=== PATIENT | female | born 1955 | race Caucasian/White ===

== ENCOUNTER 2017-03-17 01:31 | Inpatient (IN) | payer OTHER ==
[2017-03-17] MEDS ORDERED: ACETAMINOPHEN WITH CODEINE 300MG/30MG TABLET PO ONE (02:13)
--- NOTE | 2017-03-17 02:13 | PDOC ---
History of Present Illness <David Tinajero - Last Filed: 03/17/17 04:03> - General History Source: Patient, Family Exam Limitations: No Limitations - History of Present Illness Initial Comments: 03/17/17 02:08 Patient is a 61-year-old female with history of Psoriasis, HTN, HLD, DM, orthoscopic knee surgery brought in by daughters complaining off and leg pain since 1.5 hours. States that patient was walking down 4 steps tripped and fell hitting the left knee. There was not head strike. No LOC. States pain is 8/10 worse with movement. Deneis nausea, vomiting, dizziness, sob, chest pain. PMD: in the [place] PMHX: as above PSocHx: lives at home in a 4th floor walk up with and child, no cig, no etoh, no drugs. ALL: NKDA GENERAL/CONSTITUTIONAL: [No fever or chills. No weakness. No weight change.] HEAD, EYES, EARS, NOSE AND THROAT: [No change in vision. No ear pain or discharge. No sore throat.] CARDIOVASCULAR: [No chest pain or shortness of breath.] RESPIRATORY: [No cough, wheezing, or hemoptysis.] GASTROINTESTINAL: [No nausea, vomiting, diarrhea or constipation. No rectal bleeding.] GENITOURINARY: [No dysuria, frequency, or change in urination.] MUSCULOSKELETAL: (+) joint or muscle swelling or pain. (-) neck or back pain.] SKIN AND BREASTS: (+) rash generalized or easy bruising.] NEUROLOGIC: [No headache, vertigo, loss of consciousness, or loss of sensation.] PSYCHIATRIC: [No depression or anxiety.] ENDOCRINE: [No increased thirst. No abnormal weight change.] HEMATOLOGIC/LYMPHATIC: [No anemia, easy bleeding, or history of blood clots.] ALLERGIC/IMMUNOLOGIC: [No hives or skin allergy. No latex allergy.] GENERAL: [The patient is awake, alert, and fully oriented, in no acute distress. ] HEAD: [Normal with no signs of trauma.] EYES: [Pupils equal, round and reactive to light, extraocular movements intact, sclera anicteric, conjunctiva clear.] ENT: [Ears normal, nares patent, oropharynx clear without exudates. Moist mucous membranes.] NECK: [Normal range of motion, supple without lymphadenopathy, JVD, or masses.] LUNGS: [Breath sounds equal, clear to auscultation bilaterally. No wheezes, and no crackles.] HEART: [Regular rate and rhythm, normal S1 and S2 without murmur, rub.] ABDOMEN: [Soft, nontender, normoactive bowel sounds. No guarding, no rebound. No masses.] EXTREMITIES: Limited range of motion, (+) edema lower ext, (+) deformity and tenderness at the knee, moderate amount of swelling and tenderness distal to the knee over the anterior surface of the costello. Pulses are intact No clubbing or cyanosis. NEUROLOGICAL: [Cranial nerves II through XII grossly intact. Normal speech, normal gait.] PSYCH: [Normal mood, normal affect.] SKIN: [Warm, Dry, normal turgor, (+) rashes over the ext b/l, (-) lesions noted. ] <Lev Toscano - Last Filed: 03/17/17 08:31> - General Stated Complaint: FALL Time Seen by Provider: 03/17/17 01:51 Past History <David Tinajero - Last Filed: 03/17/17 04:03> <Lev Toscano - Last Filed: 03/17/17 08:31> - Past Medical History Allergies/Adverse Reactions: Allergies Allergy/AdvReac Type Severity Reaction Status Date / Time No Known Allergies Allergy Verified 03/17/17 02:10 *Physical Exam - Vital Signs Last Vital Signs Temp Pulse Resp BP Pulse Ox 98.3 F 85 18 160/75 95 03/17/17 02:05 03/17/17 02:05 03/17/17 02:05 03/17/17 02:05 03/17/17 02:05 <David Tinajero - Last Filed: 03/17/17 04:03> ED Treatment Course - Medications Given in the ED: ED Medications Discontinued Medications Generic Name Dose Route Start Last Admin Trade Name Freq PRN Reason Stop Dose Admin Acetaminophen/Codeine Phosphate 1 tab 03/17/17 02:13 03/17/17 03:15 Tylenol # 3 - PO 03/17/17 02:14 1 tab ONCE ONE Administration <David Tinajero - Last Filed: 03/17/17 04:03> - LABORATORY CBC & Chemistry Diagram: 03/17/17 04:34 03/17/17 04:34 <Lev Toscano - Last Filed: 03/17/17 08:31> Medical Decision Making - Medical Decision Making 03/17/17 04:03 EXAM: CT LEFT LOWER EXTREMITY without contrast FINDINGS: There is a markedly comminuted fracture of the proximal tibia involving the central aspect of the medial and lateral tibial plateaus with 3 mm of depression of the lateral plateau. Comminuted fibular head fracture is also noted with extension to the tibial fibular joint. The patella and distal femur are intact. There is a moderate-sized hemarthrosis without discrete intra-articular bodies. There is surrounding soft tissue edema. IMPRESSION: Comminuted proximal tibial fracture with mild lateral tibial plateau depression. Fibular head fracture with extension to the proximal tibiofibular joint. Read by: Dr. Sunny Perez <David Tinajero - Last Filed: 03/17/17 04:03> - Medical Decision Making 03/17/17 02:13 Patient is a 61-year-old female with history of HTN, HLD, DM, brought in by daughters complaining off and leg pain since an 1.5 hours ago with pain, swelling and deformity on exam consitent with fracture. xray Noted to have a comminuted proxmial tib/fib and tibial plateau fx will get ct of knee and labs 03/17/17 05:15 Laboratory Tests 03/17/17 03/17/17 03/17/17 04:34 04:34 04:34 WBC 15.2 H Hgb 12.1 Hct 35.4 Plt Count 248 PT with INR 11.90 H INR 1.05 PTT (Actin FS) 27.5 Sodium 135 L Potassium 4.1 Chloride 98 Carbon Dioxide 28 Anion Gap 9 BUN 18 Creatinine 0.7 Random Glucose 339 H* will call the hospitalist for admission 03/17/17 05:22 EKG NSR rate 91, NAD, (-) ST-T wave changes 03/17/17 08:[address] Casiano/Esmer paged x 5 at 0630, 0700, 0730, 0800, 0824 messages left with the service and have no response to page. 0828 d/w Dr. Casiano and will see the patient on the floor. <Lev Toscano - Last Filed: 03/17/17 08:31> *DC/Admit/Observation/Transfer - Attestations Scribe Attestion: 03/17/17 04:05 Documentation prepared by David Tinajero, acting as medical genetics director for Vickie Pereira MD. <David Tinajero - Last Filed: 03/17/17 04:03> - Discharge Dispostion Admit: Yes <Lev Toscano - Last Filed: 03/17/17 08:31> Diagnosis at time of Disposition: Hyperglycemia Tibial plateau fracture, left Qualifiers: Encounter type: initial encounter Fracture type: closed Qualified Code(s): S82.142A - Displaced bicondylar fracture of left tibia, initial encounter for closed fracture Tibia/fibula fracture Qualifiers: Encounter type: initial encounter Fracture type: closed Laterality: left Qualified Code(s): S82.202A - Unspecified fracture of shaft of left tibia, initial encounter for closed fracture - Discharge Dispostion Condition at time of disposition: Stable
[2017-03-17] MEDS ORDERED: ACETAMINOPHEN WITH CODEINE 300MG/30MG TABLET ONE (02:42)
[2017-03-17 04:41] LABS: BASOPHIL 0.4 % (0-2.0); EOSINOPHIL 0.3 % (0-4.5); MCH 30.2 pg (25.7-33.7); MCHC 34.2 g/dl (32.0-36.0); MEAN CELL VOLUME 88.3 fl (80-96); MEAN PLT VOLUME 9.2 fl (7.5-11.1); NEUTROPHILS 89.5 % (42.8-82.8); PLATELET COUNT 248 K/MM3 (134-434); RDW 12.7 % (11.6-15.6); WHITE BLOOD COUNT 15.2 K/mm3 (4.0-10.0)
[2017-03-17 04:54] LABS: INR 1.05 (0.82-1.09); PROTHROMBIN TIME (PATIENT) 11.9 SEC (9.98-11.88)
[2017-03-17 04:56] LABS: ACTIVATED PTT 27.5 SECONDS (26.9-34.4)
[2017-03-17 05:03] LABS: ALBUMIN 3.8 g/dl (3.4-5.0); ANION GAP 9 (8-16); BILIRUBIN,TOTAL 0.3 mg/dL (0.2-1.0); CALCIUM 8.8 mg/dL (8.5-10.1); CO2 28 mmol/L (21-32); CREATININE 0.7 mg/dL (0.55-1.02); SGOT/AST 18 U/L (15-37); SGPT/ALT 35 U/L (12-78); TOT PROT 6.5 g/dl (6.4-8.2)
[2017-03-17 05:04] LABS: ALK PHOS 95 U/L (45-117)
[2017-03-17 05:10] LABS: GLUCOSE,RANDOM 339 mg/dL (74-106)
[2017-03-17] MEDS ORDERED: SODIUM CHLORIDE 0.9% 1000 ML INFUS.BAG IV ONE (05:13)
--- NOTE | 2017-03-17 06:22 | PN ---
Teaching Attending Note Name of Resident: Antonio Gunter ATTENDING PHYSICIAN STATEMENT I saw and evaluated the patient. Chart, data, imaging reviewed. I reviewed the resident's note and discussed the case with the resident. I agree with the resident's findings and plan as documented. SUBJECTIVE: 61-year-old female with history of Psoriasis, HTN, HLD, DM, orthoscopic knee surgery brought in s/p fall down a staircase and trauma to left knee. States that patient was walking down 4 steps tripped and fell hitting the left knee. Pt denied any loss of sensation in lower extremities. OBJECTIVE: Last Vital Signs Temp Pulse Resp BP Pulse Ox 98.3 F 85 18 160/75 95 03/17/17 02:05 03/17/17 02:05 03/17/17 02:05 03/17/17 02:05 03/17/17 02:05 general aaox3 heent- nc, at cv -s1+s2+ rrr, systolic murmur chest- b/l air entry sounds ext - proximal left leg edema and some mild tenderness Neuro -exam intact in lower ext b/l. No loss in sensation. Motor intact. Abnormal Lab Results 03/17/17 03/17/17 03/17/17 04:34 04:34 04:34 WBC 15.2 H Neutrophils % 89.5 H Lymphocytes % 5.7 L PT with INR 11.90 H Sodium 135 L Random Glucose 339 H* CT of left lower extremity - proximal left tibial and fibula fractures EKG -NSR ASSESSMENT AND PLAN: #B/l proximal left fibular and tibial fractures in a 61yo woman s/p fall and trauma. -admit to med/surg -orthopedics consultation -left knee immobilization -pain control with tylenol prn -enoxaparin 40mg inj q24hrs for dvt ppx -DEXA scan -calcium and vitamin D #Hyperglycemia -uncontrolled DM -insulin sliding scale -statin -ACEi #Systolic murmur -transthoracic echo -should call pharmacy in AM to confirm medications
[2017-03-17] MEDS ORDERED: ATORVASTATIN CA 80 MG TABLET (FP) PO ONE (06:30)
[2017-03-17] MEDS ORDERED: IBUPROFEN 100 MG/5 ML UNIT DOSE CUPS ONE (06:40)
--- NOTE | 2017-03-17 06:55 | HP ---
CHIEF COMPLAINT: Pain, swelling in L knee after mechanical fall PCP: Dr. Oneil Patient citizen of [place]-speaking, family at bedside to translate/provide collateral HISTORY OF PRESENT ILLNESS: 61 yo woman w/ pmh of psoriasis, DM2 (non-insulin dependent), HTN, HLD, who presented to ED after mechanical fall while walking down stairs of her apartment building and striking her knee. At baseline, pt ambulates well without assistance w/ no hx of mechanical falls or traumatic fx's. Today, pt was walking down the stairs of her apartment building and loss her balance, hitting her knee on the stairs. Pt denies any gross deformities, compound fx or new neurologic symptoms at the time. Pt endorses pain and swelling following strike, 8/10, worse with movement. She denies any LOC, headstrike, lightheadness or dizzines, palpitations, CP or coughing spells at the time. Pt called her daughter, who stayed with her until the ambulance came. Per daughter , pt was pale, anxious and tachycardic after fall. Pt denies any recent fever/ chills, SOB/cough, CASTILLO/lightheadness, palpitations, chest pain, dysuria, diarrhea , rashes or new neuro symptoms. Pt has no hx of fx's, but has never been evaluated for osteopenia. She no longer follows with her PCP, Dr. Oneil in the [place], due to no insurance coverage. Normal diet, colonoscopy was 6 years ago (unremarkable per family). She denies any cardiac or pulmonary conditions that would make her a poor surgical candidate. Pt w/ poor understanding of her medication regimen, unsure if she takes medication for blood glucose control. ER course was notable for: (1)CT L leg with comminuted L tibial plateau fx (2)BG 339 (3)WBC 15.2 Recent Travel: None PAST MEDICAL HISTORY: Psoriasis DM2 HLD HTN PAST SURGICAL HISTORY: L knee arthroscopy ?7 years ago for unknown reason (periarticular edema?) Social History: Smoking: No Alcohol: No Drugs: No Family History: No hx of heart dz, cancer, DM Allergies No Known Allergies Allergy (Verified 03/17/17 02:10) HOME MEDICATIONS: REVIEW OF SYSTEMS CONSTITUTIONAL: Absent: fever, chills, diaphoresis, generalized weakness, malaise HEENT: Absent: rhinorrhea, nasal congestion, throat pain CARDIOVASCULAR: Absent: chest pain, syncope, palpitations, irregular heart rate, lightheadedness , peripheral edema RESPIRATORY: Absent: cough, shortness of breath, dyspnea with exertion GASTROINTESTINAL: Absent: abdominal pain, abdominal distension, nausea, vomiting, diarrhea GENITOURINARY: Absent: dysuria, frequency, urgency, hesitancy, hematuria, flank pain, genital pain MUSCULOSKELETAL: arthralgia, joint swelling in L leg Absent: myalgia, back pain, neck pain SKIN: BL psoriatic rash in all 4 extremities Absent: itching, pallor HEMATOLOGIC/IMMUNOLOGIC: Absent: easy bleeding, easy bruising, lymphadenopathy, frequent infections ENDOCRINE: Absent: unexplained weight gain, unexplained weight loss NEUROLOGIC: Absent: headache, focal weakness or paresthesias, dizziness, unsteady gait, seizure PHYSICAL EXAMINATION Vital Signs - 24 hr 03/17/17 02:05 Temperature 98.3 F Pulse Rate 85 Respiratory 18 Rate Blood Pressure 160/75 O2 Sat by Pulse 95 Oximetry (%) GENERAL: Awake, alert, and fully oriented, in no acute distress. [place]- speaking. HEAD: Normal with no signs of trauma. EYES: Pupils equal, round and reactive to light, extraocular movements intact, sclera anicteric, conjunctiva clear. No lid lag. EARS, NOSE, THROAT: Ears normal, nares patent, oropharynx clear without exudates. Moist mucous membranes. NECK: Normal range of motion, supple without lymphadenopathy, JVD, or masses. LUNGS: Breath sounds equal, clear to auscultation bilaterally. No wheezes, and no crackles. No accessory muscle use. HEART: 3/6 systolic ejection murmur in RUSB and LUSB border with radiation to carotids BL, normal S1 and S2 without any other m/c/g/r ABDOMEN: Soft, nontender, not distended, normoactive bowel sounds, no guarding, no rebound, no masses. No hepatomegaly MUSCULOSKELETAL: Limited ROM in L knee secondary to periarticular edema. Mild tenderness to palpation at joint line. No CVA tenderness. UPPER EXTREMITIES: 2+ pulses, warm, well-perfused. No cyanosis. No clubbing. No peripheral edema. LOWER EXTREMITIES: 2+ pulses DP, PT pulses BL, warm, well-perfused. No calf tenderness. L inflatable cast on L knee. 2+ non-pitting periarticular edema around L knee. BL psoriatic rashes on anterior LEs. 3-4 cm irregularly bordered macule on R medial shank. 5/5 strength dorsi/plantarflexion BL; 5/5 strength at flexion/extension in R knee/hip. 5/5 strength flexion/extension at L hip, limited ROM at L knee. NEUROLOGICAL: Cranial nerves II-XII intact. Normal speech. Gait not evaluated. PSYCHIATRIC: Cooperative. Good eye contact. Appropriate mood and affect. SKIN: Warm, dry, normal turgor. Psoriatic rash noted on BL extensor surface of forearms, anterior surface of shanks. Laboratory Results - last 24 hr CBC, BMP 03/17/17 04:34 03/17/17 04:34 03/17/17 03/17/17 03/17/17 04:34 04:34 04:34 WBC 15.2 H RBC 4.00 Hgb 12.1 Hct 35.4 MCV 88.3 MCH 30.2 MCHC 34.2 RDW 12.7 Plt Count 248 MPV 9.2 Neutrophils % 89.5 H Lymphocytes % 5.7 L Monocytes % 4.1 Eosinophils % 0.3 Basophils % 0.4 PT with INR 11.90 H INR 1.05 PTT (Actin FS) 27.5 Sodium 135 L Potassium 4.1 Chloride 98 Carbon Dioxide 28 Anion Gap 9 BUN 18 Creatinine 0.7 Creat Clearance w eGFR > 60 Random Glucose 339 H* Calcium 8.8 Total Bilirubin 0.3 AST 18 ALT 35 Alkaline Phosphatase 95 Total Protein 6.5 Albumin 3.8 CXR 03/17 - Pending EKG 03/17 - NSR. Rate in 90s. NAD. Small Q waves in II. TWI in V3-V4. No ST changes. No QTc prolongation CT L leg (my read) 03/17- L comminuted Tibial plateau fx and proximal fibula. Ankle/knee XR 03/17 - Proximal Tibial and fibular fx ASSESSMENT/PLAN: 61 yo woman w/ pmh of psoriasis, DM2 (non-insulin dependent), HTN, HLD, who presented to ED after mechanical fall while walking down stairs of her apartment building and striking her knee. Pt found to have proximal comminuted tibial fracture and fibular fx, in addition to elevated BG (339) and leukocytosis (15.2). #Proximal L tibial and fibular fracture - confirmed on imaging - Orthopedics consult - Left knee immobilization in inflatable cast. - Serial LE neuro checks. - Tylenol 650 PO q4h prn - DEXA scan as outpt - Calcium/vitamin D levels - NPO #DM2/hyperglycemia - BGM Q4h - Insulin SS - F/u Hgb A1c - F/u with pharmacy for med rec - Referral for PCP #HTN - 160/75 on admission - Start on ACEi for BP control #HLD - atorvastatin 80mg PO #Systolic murmur - 3/6 systolic ejection murmur, radiating to carotids - Echo #PPX Heparin SubQ 5000u FEN: Fluids: PO intake Eletrolytes: Daily BMPs Nutrition: NPO currently. Diabetic diet if surgery not today Dispo: Admit to med-surg Plan discussed with attending, Dr. Kody Gunter, PGY1 Problem List - Problem (1) Hyperglycemia Code(s): R73.9 - HYPERGLYCEMIA, UNSPECIFIED (2) Tibia/fibula fracture Code(s): S82.209A - UNSP FRACTURE OF SHAFT OF UNSP TIBIA, INIT FOR CLOS FX; S82.409A - UNSP FRACTURE OF SHAFT OF UNSP FIBULA, INIT FOR CLOS FX Qualifiers: Encounter type: initial encounter Fracture type: closed Laterality: left Qualified Code(s): S82.202A - Unspecified fracture of shaft of left tibia, initial encounter for closed fracture; S82.402A - Unspecified fracture of shaft of left fibula, initial encounter for closed fracture; S82.402A - Unspecified fracture of shaft of left fibula, initial encounter for closed fracture Visit type - Emergency Visit Emergency Visit: Yes ED Registration Date: 03/17/17 Care time: The patient presented to the Emergency Department on the above date and was hospitalized for further evaluation of their emergent condition. - New Patient This patient is new to me today: Yes Date on this admission: 03/17/17 - Critical Care Critical Care patient: No
--- NOTE | 2017-03-17 08:46 | EKG ---
Test Reason : Blood Pressure : / mmHG Vent. Rate : 091 BPM Atrial Rate : 091 BPM P-R Int : 140 ms QRS Dur : 076 ms QT Int : 372 ms P-R-T Axes : 065 042 040 degrees QTc Int : 457 ms NORMAL SINUS RHYTHM CANNOT RULE OUT ANTERIOR INFARCT , AGE UNDETERMINED ABNORMAL ECG NO PREVIOUS ECGS AVAILABLE Confirmed by KUSHAL DANIEL MD ([id number]) on 03/17/2017 8:46:17 AM Referred By: Confirmed By:KUSHAL DANIEL MD
[2017-03-17] MEDS ORDERED: INSULIN (NOVOLOG) ASPART 100 UNITS/ML 10ML VIAL ONE (09:17)
[2017-03-17] MEDS: LISINOPRIL 10 MG TABLET (FP) PO SCH ×2 (09:18→11:14)
[2017-03-17 11:21] VITALS: BMI 23.6
[2017-03-17] MEDS: ACETAMINOPHEN 325 MG TABLET (FP) PO PRN ×3 (11:35→22:09)
[2017-03-17] MEDS: HEPARIN NA (PORCINE) 5,000 UNITS/ML 1ML VIAL SQ SCH ×3 (11:46→22:09)
[2017-03-17] MEDS: INSULIN SLIDING SCALE (NOVOLOG) 1 VIAL SQ SCH ×3 (11:46→17:51)
--- NOTE | 2017-03-17 13:04 | PN ---
Progress Note (short form) - Note Progress Note: Subjective: has mild pain in L leg below the knee. NO CP or SOB, denies any h/o CAD, arrhythmias , heart failure, or MARTINEZ. can climb 4 flights of stairs before she gets SOB , and can walk on a flat surface for 4-5 blocks with no SOB or CP Objective: Vital Signs: Last Vital Signs Temp Pulse Resp BP Pulse Ox 99.0 F 93 H 18 125/65 95 03/17/17 09:00 03/17/17 09:00 03/17/17 09:00 03/17/17 09:00 03/17/17 02:05 Laboratory Results - last 24 hr 03/17/17 03/17/17 03/17/17 04:34 04:34 04:34 WBC 15.2 H RBC 4.00 Hgb 12.1 Hct 35.4 MCV 88.3 MCH 30.2 MCHC 34.2 RDW 12.7 Plt Count 248 MPV 9.2 Neutrophils % 89.5 H Lymphocytes % 5.7 L Monocytes % 4.1 Eosinophils % 0.3 Basophils % 0.4 PT with INR 11.90 H INR 1.05 PTT (Actin FS) 27.5 Sodium 135 L Potassium 4.1 Chloride 98 Carbon Dioxide 28 Anion Gap 9 BUN 18 Creatinine 0.7 Creat Clearance w eGFR > 60 POC Glucometer Random Glucose 339 H* Calcium 8.8 Total Bilirubin 0.3 AST 18 ALT 35 Alkaline Phosphatase 95 Total Protein 6.5 Albumin 3.8 03/17/17 03/17/17 09:14 11:41 WBC RBC Hgb Hct MCV MCH MCHC RDW Plt Count MPV Neutrophils % Lymphocytes % Monocytes % Eosinophils % Basophils % PT with INR INR PTT (Actin FS) Sodium Potassium Chloride Carbon Dioxide Anion Gap BUN Creatinine Creat Clearance w eGFR POC Glucometer 316 259 Random Glucose Calcium Total Bilirubin AST ALT Alkaline Phosphatase Total Protein Albumin Physical Exam: NAD , AAOx3 . HEENT: MMM, no facial droop, EOMI, tongue and uvula at mid line , round equal pupils , reactive to light . CV: RRR, 3/6 SM at RUSB, and LLSB. also to a lesser extent at apex . No JVD Lungs : CTAB Abd: soft, NT, ND , NL BS Ext: L leg in a mobilizer. edema over all leg and thigh down to foot. also bruising noted just below the knee. DP 2+ b/l . can primary teacher her L ankle and toes. nl warmth and nl color of foot. R LE with no edema or erythema Imaging: CT LE, and LE xrays , cxray reviewed Assessment/Plan: 61 y/o lady with h/o HTN, DMII, HLP, and orthoscopic sx to L knee in past who presented with pain in L leg after a fall , she was found to have L tibia and fibula Fxs. 1- L tibia and fibula Fractures : no neuro vascular compromise of LLE . - add percocet. - cont tylenol. - no weight baring - Consult Ortho - DVT PX. - Make NPO after mid night for possible Sx . - pre-Op risk stratification: this is a non-emergent surgery. The procedure itself is an intermediate risk procedure. the patient has no h/o CAD, CHF, Arrhythmias, MARTINEZ, CP , anginal sx. her functional status is very good ( meets at least 10 METS). she has DM , but no stroke. She has a systolic murmur on exam. and /or severe valvular abnormalities need to be r/o EKG reviewed with TWI in anterior leads , but nl axis and sinus rhythm. In order to risk stratify her fro michael-surgical cardiac complications, will need to obtain ECHO. Further Recs to follow depending on results . 2- H/o DM II: takes glipizid at home - cont SSI 3- HTN: cont lisinopril 4- mild leukocytosis : likely a stress reaction . she has no sx or signs to indicate infection repeat in AM 5- DVT Px Visit type - Emergency Visit Emergency Visit: Yes ED Registration Date: 03/17/17 Care time: The patient presented to the Emergency Department on the above date and was hospitalized for further evaluation of their emergent condition. - New Patient This patient is new to me today: Yes Date on this admission: 03/17/17 - Critical Care Critical Care patient: No
[2017-03-17] MEDS: oxyCODONE HCL 5 MG TABLET PO PRN (15:41)
--- NOTE | 2017-03-17 20:10 | PN ---
Progress Note (short form) - Note Progress Note: Paged due to new onset of tense, clear fluid-filled bullae on L leg around knee. Upon evaluation pt denied any fever/chills, numbness in her leg, intractable pain. PE: Gen: NAD, awake, alert Ext: Warm, DP 2+ pulses b/l, knee immobilizer in place, slight echymosis around L knee, multiple tense bullae around L knee with largest about 6 cm long, no distal L edema, no erythema noted, no ruptured bullae present A/P --Most likely directly related to trauma and 3rd spacing of fluid due to tib/ fib fracture --No suspected infection/cellulitis --No rupturing of bullae present so no need for any topical ointments --Instructed nursing staff to keep some 4x4's gently on bullae and to continue knee immobilization --Elevate leg with pillow as tolerated --Will sign out to day team Nael Peña, DO - Internal Medicine PGY-1
[2017-03-18] MEDS: oxyCODONE HCL 5 MG TABLET PO PRN ×3 (05:03→21:54)
[2017-03-18] MEDS: ACETAMINOPHEN 325 MG TABLET (FP) PO PRN ×2 (05:03→09:20)
[2017-03-18] MEDS: HEPARIN NA (PORCINE) 5,000 UNITS/ML 1ML VIAL SQ SCH ×2 (06:18→14:03)
[2017-03-18] MEDS: INSULIN SLIDING SCALE (NOVOLOG) 1 VIAL SQ SCH ×3 (06:20→17:42)
--- NOTE | 2017-03-18 06:35 | PN ---
Physical Exam: SUBJECTIVE: Patient seen and examined by me this AM - Scattered large bulla on L shank, with no erythema/calor and no tenderness to palpation. Anterior laceration was noted. Pt states pain in L knee improved. - No other overnight events. No complaints. Denies any fever/chills, CASTILLO/dizzines , CP/palps, SOB/cough, N/V, abdominal pain, pain/numbness in hands or feet. - Has not been seen by ortho yet per pt. Will follow-up on recs. OBJECTIVE: Vital Signs Intake & Output 03/15/17 03/16/17 03/17/17 03/18/17 23:59 23:59 23:59 23:59 Intake Total 750 Balance 750 Weight 58.74 kg Period Temp Pulse Resp BP Sys/Marquez Pulse Ox Last 24 Hr 98.6 F-100.0 F 88-104 18-20 105-128/62-74 97 GENERAL: Awake, alert, and fully oriented, in no acute distress. Slovak- speaking. HEAD: Normal with no signs of trauma. EYES: Pupils equal, round and reactive to light, extraocular movements intact, sclera anicteric, conjunctiva clear. No lid lag. EARS, NOSE, THROAT: Ears normal, nares patent, oropharynx clear without exudates. Moist mucous membranes. NECK: Normal range of motion, supple without lymphadenopathy, JVD, or masses. LUNGS: Breath sounds equal, clear to auscultation bilaterally. No wheezes, and no crackles. No accessory muscle use. HEART: 3/6 systolic ejection murmur in RUSB and LUSB border with radiation to carotids BL, normal S1 and S2 without any other m/c/g/r ABDOMEN: Soft, nontender, not distended, normoactive bowel sounds, no guarding, no rebound, no masses. No hepatomegaly MUSCULOSKELETAL: Still with limited ROM in L knee secondary to periarticular edema. Improved minimal tenderness to palpation at joint line. No CVA tenderness. UPPER EXTREMITIES: 2+ pulses, warm, well-perfused. No cyanosis. No clubbing. No peripheral edema. LOWER EXTREMITIES: 2+ pulses DP, PT pulses in R foot. 1+ DP, PT in L foot, likely due to dependent edema accumulation, 2+ non-pitting in L foot now. BL warm, well-perfused. No calf tenderness. still w L inflatable cast on L knee. 2 + non-pitting periarticular edema around L knee. BL psoriatic rashes on anterior LEs. Multiple 3-6 cm bullae on anterior L costello with pressure dressing applied in cast and anterior, healed laceration on anterior costello. No significant calor, erythema or pain on palpation. 5/5 strength dorsi/plantarflexion BL; 5/5 strength at flexion/extension in R knee/hip. 5/5 strength flexion/extension at L hip, limited ROM at L knee. NEUROLOGICAL: Cranial nerves II-XII intact. Normal speech. Gait not evaluated. PSYCHIATRIC: Cooperative. Good eye contact. Appropriate mood and affect. SKIN: Warm, dry, normal turgor. Still with psoriatic rash noted on BL extensor surface of forearms, anterior surface of shanks. Laboratory Results - last 24 hr CBC, BMP 03/18/17 06:20 03/17/17 04:34 03/17/17 03/17/17 03/17/17 09:14 11:41 16:56 POC Glucometer 316 259 237 03/17/17 03/18/17 21:02 05:45 POC Glucometer 248 274 Active Medications Generic Name Dose Route Start Last Admin Trade Name Freq PRN Reason Stop Dose Admin Acetaminophen 650 mg 03/17/17 06:20 03/18/17 05:03 Tylenol - PO 650 mg Q4H PRN Administration FEVER OR PAIN Acetaminophen 325 mg 03/17/17 12:57 03/17/17 22:09 Tylenol - PO 03/20/17 12:56 325 mg Q4H PRN Administration PAIN Atorvastatin Calcium 80 mg 03/18/17 08:15 Lipitor - PO HS [facility] Heparin Sodium (Porcine) 5,000 unit 03/17/17 06:45 03/18/17 06:18 Heparin - SQ 5,000 unit TID [facility] Administration Insulin Aspart 1 vial 03/17/17 16:30 03/18/17 06:20 Novolog Vial Sliding Scale - SQ Not Given TIDAC [facility] Protocol Lisinopril 10 mg 03/17/17 08:15 03/17/17 11:14 Prinivil PO Not Given DAILY [facility] Oxycodone HCl 5 mg 03/17/17 12:57 03/18/17 05:03 Roxicodone - PO 5 mg Q4H PRN Administration PAIN ECHO 03/18 - Mild TR. Normal LV function. Mild Pulm htn, RV pressure 30-40 CXR 03/17 - Impression: Scoliosis. Large heart. Pacemaker. Clear lung bases. Constipation. No sign of free air or organomegaly. Possible left ureteral stone versus ngoc calcification by L4. EKG 03/17 - NSR. Rate in 90s. NAD. Small Q waves in II. TWI in V3-V4. No ST changes. No QTc prolongation CT L leg (my read) 03/17- L comminuted Tibial plateau fx and proximal fibula. Ankle/knee XR 03/17 - Proximal Tibial and fibular fx ASSESSMENT/PLAN: 61 yo woman w/ pmh of psoriasis, DM2 (non-insulin dependent), HTN, HLD, who presented to ED after mechanical fall while walking down stairs of her apartment building and striking her knee. Pt found to have proximal comminuted tibial fracture and fibular fx, in addition to elevated BG (339) and leukocytosis (15.2). #Proximal L tibial and fibular fracture - confirmed on imaging - Seen by ortho. Plan for possible external fixation device placement tomorrow. - NPO after midnight - Left knee immobilization in inflatable cast. - Serial LE neuro checks. - oxycodone 5mg PO q4h prn for pain - DEXA scan as outpt - Calcium/vitamin D levels - Hold heparin at midnight - Surgical risk stratification: Non-emergent surgery. Procedure is intermediate risk surgery. Pt has no CVD, CHF, arrhthymias, COPD, chest pain, MARTINEZ, orthopnea , claudications, angina. PMH of diabetes, but no hx of DVTs, PEs or CVA. Pt can walk 4 flights of stairs w/o becoming symptomatic. Independent in all ADLs. Excellent functional status (METs >10). Screening echo negative for significant valvular dz. Conclusion: She is low risk of cardiac event for this intermediate risk surgery and no further work-up is medically necessary. #DM2/hyperglycemia - BGM Q4h - Insulin SS - Hgb A1c 9.5. Will require outpt f/u - Referral for PCP - Confirm home insulin regimen #HTN - 160/75 on admission - Lisinopril 10mg PO daily #HLD - Good BP control during admission - atorvastatin 80mg PO #Systolic murmur - 3/6 systolic ejection murmur, radiating to carotids on exam - Echo - Mild TR. Normal LV function. Mild Pulm HTN, RV pressure 30-40 #Constipation - Senna, colace #PPX Heparin SubQ 5000u FEN: Fluids: PO hydration Eletrolytes: Daily BMPs Nutrition: NPO at midnight. Dispo: Admit to med-surg for pre- and post-op management Plan discussed with attending, Dr. Betty Gunter, PGY1 Problem List - Problems (1) Hyperglycemia Code(s): R73.9 - HYPERGLYCEMIA, UNSPECIFIED (2) Tibia/fibula fracture Code(s): S82.209A - UNSP FRACTURE OF SHAFT OF UNSP TIBIA, INIT FOR CLOS FX; S82.409A - UNSP FRACTURE OF SHAFT OF UNSP FIBULA, INIT FOR CLOS FX Qualifiers: Encounter type: initial encounter Fracture type: closed Laterality: left Qualified Code(s): S82.202A - Unspecified fracture of shaft of left tibia, initial encounter for closed fracture; S82.402A - Unspecified fracture of shaft of left fibula, initial encounter for closed fracture; S82.402A - Unspecified fracture of shaft of left fibula, initial encounter for closed fracture Visit type - Emergency Visit Emergency Visit: Yes ED Registration Date: 03/17/17 Care time: The patient presented to the Emergency Department on the above date and was hospitalized for further evaluation of their emergent condition. - New Patient This patient is new to me today: No - Critical Care Critical Care patient: No
[2017-03-18 06:37] LABS: BASOPHIL 0.6 % (0-2.0); EOSINOPHIL 1.7 % (0-4.5); MCH 30.6 pg (25.7-33.7); MCHC 34.4 g/dl (32.0-36.0); MEAN CELL VOLUME 88.8 fl (80-96); NEUTROPHILS 64.6 % (42.8-82.8); PLATELET COUNT 199 K/MM3 (134-434); RDW 12.6 % (11.6-15.6); WHITE BLOOD COUNT 8.6 K/mm3 (4.0-10.0)
[2017-03-18 07:04] LABS: MAGNESIUM 1.7 mg/dL (1.8-2.4); PHOSPHOROUS 2.4 mg/dL (2.5-4.9)
[2017-03-18] MEDS ORDERED: ATORVASTATIN CA 80 MG TABLET (FP) PO SCH ×2 (08:15→22:00)
[2017-03-18] MEDS: LISINOPRIL 10 MG TABLET (FP) PO SCH (09:22)
--- NOTE | 2017-03-18 09:25 | CON.ORTH ---
Consult Reason for Consultation:: left tibia fx - Alcohol/Substance Use Hx Alcohol Use: No - Smoking History Smoking history: Never smoked Have you smoked in the past 12 months: No Home Medications - Allergies Allergies/Adverse Reactions: Allergies Allergy/AdvReac Type Severity Reaction Status Date / Time No Known Allergies Allergy Verified 03/17/17 02:10 Physical Exam for Ortho Vital Signs: Vital Signs Temperature 100.0 F H 03/18/17 05:26 Pulse Rate 104 H 03/18/17 05:26 Respiratory Rate 20 03/18/17 05:26 Blood Pressure 128/74 03/18/17 05:26 O2 Sat by Pulse Oximetry (%) 97 03/17/17 20:42 Labs: CBC, BMP 03/18/17 06:20 03/17/17 04:34 INR, PTT INR 1.05 (0.82-1.09) 03/17/17 04:34 - Lower Extremity Knee: Yes: Left, Limited ROM, Pain, Swelling, Tenderness, Other (+ fracture blisters, nvi) Imaging - Results X-ray: Report Reviewed, Image Reviewed Cat Scan: Report Reviewed, Image Reviewed Assessment/Plan 61-year-old female with history of Psoriasis, HTN, HLD, DM, arthoscopic knee surgery brought in by daughters complaining off and leg pain s/p fall. States that patient was walking down 4 steps tripped and fell hitting the left knee. No LOC. States pain is 8/10 worse with movement. Deneis nausea, vomiting, dizziness, sob, chest pain. a/p- left displaced tibial plateau fx Risks and benefits were d/w pt in detail will require ORIF vs external fixator Given skin condition and swelling there is high potential for skin breakdown OR tentatively for tomorrow surgical clearance npo after midnight d/w Dr. Lyman
[2017-03-18] MEDS: SENNOSIDES/DOCUSATE COMBO (SENNA PLUS) TABLET (UD) PO SCH ×2 (12:03→21:53)
--- NOTE | 2017-03-18 18:11 | PN ---
Teaching Attending Note Name of Resident: Antonio Gunter ATTENDING PHYSICIAN STATEMENT I saw and evaluated the patient. I reviewed the resident's note and discussed the case with the resident. I agree with the resident's findings and plan as documented. SUBJECTIVE: pain is well controlled on oxycodone. Had a low grade fever this am , took tylenol OBJECTIVE: NAD, AAOx3. HEENT: MMM CV: RRR, 3/6 SM at RUSB, and LLSB. also to a lesser extent at apex . No JVD Lungs: CTAB Abd: soft, NT, ND , NL BS Ext: L leg in a mobilizer. edema over all leg and thigh down to foot. also bruising noted just below the knee. DP 2+ b/l . can post form remover her L ankle and toes. nl warmth and nl color of foot. big fluid filled bulla around knee with no surrounding edema .R LE with no edema or erythema Assessment/Plan: 61 y/o lady with h/o HTN, DMII, HLP, and orthoscopic sx to L knee in past who presented with pain in L leg after a fall , she was found to have L tibia and fibula Fxs. 1- L tibia and fibula Fractures: no neuro vascular compromise of LLE. - change percocet to oxycodone and dc tylenol to avoid masking any fever - cont tylenol. - DVT PX. - NPO after mid night for possible Sx in am . - Bulla on Leg , are likely due to contact dermetitis with the immobilizer. - pre-Op risk stratification: this is a non-emergent surgery. The procedure itself is an intermediate risk procedure. the patient has no h/o CAD, CHF, Arrhythmias, MARTINEZ, CP , anginal sx. her functional status is very good ( meets at least 10 METS). she has DM, but no stroke. Echo with no severe valvular abnormalities. In conclusion: this patient has low risk for michael-Op cardiac events , for this intermediate risk surgery. No further cardiac w/u is indicated 2- H/o DM II: takes glipizid at home - cont SSI 3- HTN: cont lisinopril 4- Fever: monitor off abx. if recurs will start infectious W/u 5- replete hypomagnesemia and hypophosphatemia 6- DVT Px
[2017-03-18] MEDS ORDERED: MAGNESIUM SULF 50% (8.12 MEQ/2 ML-1 GM VIAL) IVPB ONE (18:15)
[2017-03-18] MEDS ORDERED: NAPH,MB-DB/K PH,MBDB POWDER PACKET PO ONE (18:15)
--- NOTE | 2017-03-19 06:14 | PN ---
Physical Exam: SUBJECTIVE: Patient seen and examined by me this AM - Febrile to 100.1 overnight, tachy to 106. Like to OR today for external fixator for fx. Will likely need SNF after. - No major complaints. Denies CASTILLO/dizziness, CP, SOB, cough, N/V, diarrhea, dysuria or new neuro symptoms. - Pharmacy contact for med rec. No record of medication list. OBJECTIVE: Vital Signs Period Temp Pulse Resp BP Sys/Marquez Pulse Ox Last 24 Hr 98.6 F-100.1 F 80-106 19-20 113-139/62-69 97-97 GENERAL: Awake, alert, and fully oriented, in no acute distress. [place]- speaking. HEAD: Normal with no signs of trauma. EYES: Pupils equal, round and reactive to light, extraocular movements intact, sclera anicteric, conjunctiva clear. No lid lag. EARS, NOSE, THROAT: Ears normal, nares patent, oropharynx clear without exudates. Moist mucous membranes. NECK: Normal range of motion, supple without lymphadenopathy, JVD, or masses. LUNGS: Breath sounds equal, clear to auscultation bilaterally. No wheezes, and no crackles. No accessory muscle use. HEART: 2/6 systolic ejection murmur in RUSB and LUSB border with radiation to carotids BL, normal S1 and S2 without any other m/c/g/r ABDOMEN: Soft, nontender, not distended, normoactive bowel sounds, no guarding, no rebound, no masses. No hepatomegaly UPPER EXTREMITIES: 2+ pulses, warm, well-perfused. No cyanosis. No clubbing. No peripheral edema. LOWER EXTREMITIES: Increased LE edema in lower shank and foot. Multiple Bulla still present on anterior L shank, no significant interval change. 2+ pulses DP , PT pulses in R foot. 2+ DP, PT in L foot. BL warm, well-perfused. No calf tenderness. still w L inflatable cast on L knee. 2+ non-pitting periarticular edema around L knee, lower shank and ankle. BL psoriatic rashes on anterior LEs still. 5/5 strength dorsi/plantarflexion BL; 5/5 strength at flexion/extension in R knee/hip. 5/5 strength flexion/extension at L hip, limited ROM at L knee. NEUROLOGICAL: Cranial nerves II-XII intact. Normal speech. Gait not evaluated. PSYCHIATRIC: Cooperative. Good eye contact. Appropriate mood and affect. SKIN: Warm, dry, normal turgor. Still with psoriatic rash noted on BL extensor surface of forearms, anterior surface of shanks. Laboratory Results - last 24 hr CBC, BMP 03/18/17 06:20 03/17/17 04:34 03/18/17 03/18/17 03/18/17 06:20 06:20 06:20 WBC 8.6 D RBC 3.23 L Hgb 9.9 L D Hct 28.7 L D MCV 88.8 MCH 30.6 MCHC 34.4 RDW 12.6 Plt Count 199 MPV 9.0 Neutrophils % 64.6 D Lymphocytes % 23.3 D Monocytes % 9.8 D Eosinophils % 1.7 D Basophils % 0.6 POC Glucometer Hemoglobin A1c % 9.5 H Phosphorus 2.4 L Magnesium 1.7 L 03/18/17 11:47 WBC RBC Hgb Hct MCV MCH MCHC RDW Plt Count MPV Neutrophils % Lymphocytes % Monocytes % Eosinophils % Basophils % POC Glucometer 258 Hemoglobin A1c % Phosphorus Magnesium Active Medications Generic Name Dose Route Start Last Admin Trade Name Freq PRN Reason Stop Dose Admin Atorvastatin Calcium 80 mg 03/18/17 22:00 03/18/17 21:54 Lipitor - PO 80 mg HS [facility] Administration Heparin Sodium (Porcine) 5,000 unit 03/17/17 06:45 03/18/17 14:03 Heparin - SQ 5,000 unit TID [facility] Administration Insulin Aspart 1 vial 03/18/17 10:45 03/18/17 17:42 Novolog Vial Sliding Scale - SQ 6 units TIDAC [facility] Administration Protocol Lisinopril 10 mg 03/17/17 08:15 03/18/17 09:22 Prinivil PO 10 mg DAILY [facility] Administration Oxycodone HCl 5 mg 03/17/17 12:57 03/18/17 21:54 Roxicodone - PO 5 mg Q4H PRN Administration PAIN Senna/Docusate Sodium 1 tablet 03/18/17 10:45 03/18/17 21:53 Pericolace - PO 1 tablet BID [facility] Administration No Micro Imaging: ECHO 03/18 - Mild TR. Normal LV function. Mild Pulm htn, RV pressure 30-40 CXR 03/17 - Impression: Scoliosis. Large heart. Pacemaker. Clear lung bases. Constipation. No sign of free air or organomegaly. Possible left ureteral stone versus ngoc calcification by L4. EKG 03/17 - NSR. Rate in 90s. NAD. Small Q waves in II. TWI in V3-V4. No ST changes. No QTc prolongation CT L leg (my read) 03/17- L comminuted Tibial plateau fx and proximal fibula. Ankle/knee XR 03/17 - Proximal Tibial and fibular fx ASSESSMENT/PLAN: 61 yo woman w/ pmh of psoriasis, DM2 (non-insulin dependent), HTN, HLD, who presented to ED after mechanical fall while walking down stairs of her apartment building and striking her knee. Pt found to have proximal comminuted tibial fracture and fibular fx, in addition to elevated BG (339) and leukocytosis (15.2). Received surgery today, will require post-op care and outpt ortho follow-up #Proximal L tibial and fibular fracture - confirmed on imaging - External fixator placement today with ortho - NPO after midnight - Left knee immobilization in inflatable cast currently - Serial LE neuro checks. - oxycodone 5mg PO q4h prn for pain - DEXA scan as outpt - Calcium/vitamin D levels - Heparin held at midnight - Surgical risk stratification: Non-emergent surgery. Procedure is intermediate risk surgery. Pt has no CVD, CHF, arrhthymias, COPD, chest pain, MARTINEZ, orthopnea , claudications, angina. PMH of diabetes, but no hx of DVTs, PEs or CVA. Pt can walk 4 flights of stairs w/o becoming symptomatic. Independent in all ADLs. Excellent functional status (METs >10). Screening echo negative for significant valvular dz. Conclusion: She is low risk of cardiac event for this intermediate risk surgery and no further work-up is medically necessary. - Post-op management per surgical team #DM2/hyperglycemia - BG 196 this AM. SS increased yesterday. - BGM Q4h - Insulin SS - Hgb A1c 9.5. Will require outpt f/u - Referral for PCP on discharge - No med record at pharmacy. Unknown home insulin regimen, given pt with poor medical literacy. #HTN - 160/75 on admission - Lisinopril 10mg PO daily #HLD - Good BP control during admission - atorvastatin 80mg PO #Systolic murmur - 3/6 systolic ejection murmur, radiating to carotids on exam - Echo - Mild TR. Normal LV function. Mild Pulm HTN, RV pressure 30-40 #Constipation - Senna, colace #PPX Heparin held for surgery. Will f/u w/ surgical team for post-op ppx FEN: Fluids: PO hydration Eletrolytes: Daily BMPs Nutrition: NPO after midnight. post-op diet per surgical team Dispo: Continue to monitor on med-surg for pre- and post-op management Plan discussed with attending, Dr. Betty Gunter, PGY1 Problem List - Problems (1) Hyperglycemia Code(s): R73.9 - HYPERGLYCEMIA, UNSPECIFIED (2) Tibia/fibula fracture Code(s): S82.209A - UNSP FRACTURE OF SHAFT OF UNSP TIBIA, INIT FOR CLOS FX; S82.409A - UNSP FRACTURE OF SHAFT OF UNSP FIBULA, INIT FOR CLOS FX Qualifiers: Encounter type: initial encounter Fracture type: closed Laterality: left Qualified Code(s): S82.202A - Unspecified fracture of shaft of left tibia, initial encounter for closed fracture; S82.402A - Unspecified fracture of shaft of left fibula, initial encounter for closed fracture; S82.402A - Unspecified fracture of shaft of left fibula, initial encounter for closed fracture Visit type - Emergency Visit Emergency Visit: Yes ED Registration Date: 03/17/17 Care time: The patient presented to the Emergency Department on the above date and was hospitalized for further evaluation of their emergent condition. - New Patient This patient is new to me today: No - Critical Care Critical Care patient: No
--- NOTE | 2017-03-19 06:17 | PN ---
Physical Exam: SUBJECTIVE: Patient seen and examined by me this AM - Pt for colonoscopy this AM. Loose BMs overnight per nursing. OBJECTIVE: Vital Signs Intake & Output 03/16/17 03/17/17 03/18/17 03/19/17 23:59 23:59 23:59 23:59 Intake Total 750 950 Balance 750 950 Weight 58.74 kg Period Temp Pulse Resp BP Sys/Marquez Pulse Ox Last 24 Hr 98.6 F-100.1 F 80-106 19-20 113-139/62-69 97-97 GENERAL: Awake, alert, and fully oriented, in no acute distress. HEAD: NCAT EYES: Anisocoria, round and reactive to light. Extraocular movements intact, sclera anicteric, conjunctiva clear. No lid lag. EARS, NOSE, THROAT: Ears normal, nares patent, oropharynx clear without exudates. Moist mucous membranes. NECK: Normal range of motion, supple without lymphadenopathy, JVD, or masses. LUNGS: Decreased breath sounds at bases. No wheezes, and no crackles. No accessory muscle use. HEART: Regular rate and rhythm, normal S1 and S2 without murmur, rub or gallop. ABDOMEN: Soft, nontender, not distended, normoactive bowel sounds, no guarding, no rebound, no masses. No hepatomegaly or splenomegaly. MUSCULOSKELETAL: Still with Joint stiffness in L hand/finger joint. No CVA tenderness. UPPER EXTREMITIES: 2+ pulses, warm, well-perfused. No cyanosis. No clubbing. No peripheral edema. LOWER EXTREMITIES: 2+ pulses pt, 2+ dp, wwp. No calf tenderness. No edema NEUROLOGICAL: Cranial nerves II-XII intact. L shouder shrug 0/5, R 5/5. L arm 0/5, can move thumb. R arm 5/5 in all muscle groups. 5/5 strength in R leg in all muscle groups, 2/5 strength in L proximal muscle groups, 4/5 plantarflexion, 3/5 dorsiflexion. Preserved facial sensation to light touch bilaterally. Preserved sensation to light touch across R leg and arm. No sensation in L leg dermatomes, sensation to L touch in lateral upper arm , but in no other distributions. - babinski's BL. +3 biceps reflex L, 2+ on R. 1 + L patellar reflex, 2+ on right. no dysdiadokinesia, pronator drift in R arm. Gait not evaluated. PSYCHIATRIC: Cooperative. Good eye contact. Appropriate mood and affect. SKIN: Warm, dry, normal turgor, no rashes or lesions noted, normal capillary refill. Laboratory Results - last 24 hr CBC, BMP 03/18/17 06:20 03/17/17 04:34 03/18/17 03/18/17 03/18/17 06:20 06:20 06:20 WBC 8.6 D RBC 3.23 L Hgb 9.9 L D Hct 28.7 L D MCV 88.8 MCH 30.6 MCHC 34.4 RDW 12.6 Plt Count 199 MPV 9.0 Neutrophils % 64.6 D Lymphocytes % 23.3 D Monocytes % 9.8 D Eosinophils % 1.7 D Basophils % 0.6 POC Glucometer Hemoglobin A1c % 9.5 H Phosphorus 2.4 L Magnesium 1.7 L 03/18/17 11:47 WBC RBC Hgb Hct MCV MCH MCHC RDW Plt Count MPV Neutrophils % Lymphocytes % Monocytes % Eosinophils % Basophils % POC Glucometer 258 Hemoglobin A1c % Phosphorus Magnesium Active Medications Generic Name Dose Route Start Last Admin Trade Name Freq PRN Reason Stop Dose Admin Atorvastatin Calcium 80 mg 03/18/17 22:00 03/18/17 21:54 Lipitor - PO 80 mg HS [facility] Administration Heparin Sodium (Porcine) 5,000 unit 03/17/17 06:45 03/18/17 14:03 Heparin - SQ 5,000 unit TID [facility] Administration Insulin Aspart 1 vial 03/18/17 10:45 03/18/17 17:42 Novolog Vial Sliding Scale - SQ 6 units TIDAC [facility] Administration Protocol Lisinopril 10 mg 03/17/17 08:15 03/18/17 09:22 Prinivil PO 10 mg DAILY [facility] Administration Oxycodone HCl 5 mg 03/17/17 12:57 03/18/17 21:54 Roxicodone - PO 5 mg Q4H PRN Administration PAIN Senna/Docusate Sodium 1 tablet 03/18/17 10:45 03/18/17 21:53 Pericolace - PO 1 tablet BID [facility] Administration No micro CXR 03/16 - Mild atelectasis in L lung base EKG: Normal axis. NSR, rate of 80. No ST-changes or TWI. QTc 440. 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 Pt is stable with Hgb today of 8.2 after receiving 5 units. Likely GI bleed given positive stool guaiac. EGD with 2 healed ulcers. No colonoscopy due to inadequate prep. Suspected L GI bleed- + stool guiac X2. Hx of possible black stool? HgB 3.5 on admission. - EGD neg this AM - GI following. Colonoscopy tomorrow. - Protonix 40mg BID PO - H/h stable. - Holding all AC. PCP Dr. Garcia agrees w/ benefit/risks of no AC in setting of suspected GI bleed. - Transfuse at <7. - Strict vitals monitoring - Will require further investigation as to dx reason for AC (CVA/PEs vs. aFib) - > chart review, further provider f/u Anemia - Received 4 units pRBCs. hgb 8.6 ->8.2 today - f/u AM CBC. Daily CBCs - Iron 21, TIBC 465, ferritin 14~ - Folate 1mg PO daily - Will require iron supp after colonoscopy HTN - Holding cardizem in setting of hypotension. Restart after procedure HLD - Lipitor 20mg NIDDM - Glucose well controlled during stay - Gabapentin 100mg PO TID Depression - Continue home lexapro 20 mg PO daily - Continue desyrel 50 po qHs Back Pain - baclofen 5mg PO daily -Acetominophen 650 PO Q6h PRN PPX: SCDs PPI gtt FEN: Fluids: D5NS 75cc Electrolytes: Daily BMPs Nutrition: Clears Dispo: Continue to monitor on floors. Plan discussed with attending, Dr. Betty Gunter, PGY1 Problem List - Problems (1) Hyperglycemia Code(s): R73.9 - HYPERGLYCEMIA, UNSPECIFIED (2) Tibia/fibula fracture Code(s): S82.209A - UNSP FRACTURE OF SHAFT OF UNSP TIBIA, INIT FOR CLOS FX; S82.409A - UNSP FRACTURE OF SHAFT OF UNSP FIBULA, INIT FOR CLOS FX Qualifiers: Encounter type: initial encounter Fracture type: closed Laterality: left Qualified Code(s): S82.202A - Unspecified fracture of shaft of left tibia, initial encounter for closed fracture; S82.402A - Unspecified fracture of shaft of left fibula, initial encounter for closed fracture; S82.402A - Unspecified fracture of shaft of left fibula, initial encounter for closed fracture
[2017-03-19] MEDS: INSULIN SLIDING SCALE (NOVOLOG) 1 VIAL SQ SCH ×3 (06:40→20:03)
[2017-03-19] MEDS: oxyCODONE HCL 5 MG TABLET PO PRN ×2 (09:34→20:31)
[2017-03-19] MEDS: LISINOPRIL 10 MG TABLET (FP) PO SCH (09:34)
[2017-03-19] MEDS: SENNOSIDES/DOCUSATE COMBO (SENNA PLUS) TABLET (UD) PO SCH ×2 (09:37→22:17)
[2017-03-19] MEDS ORDERED: BUPIVACAINE HCL/PF 0.5% (5MG/ML) 10 ML VIAL ONE (16:41)
[2017-03-19] MEDS ORDERED: MIDAZOLAM HCL 2 MG/2 ML SINGLE DOSE VIAL ONE ×2 (16:45→17:05)
[2017-03-19] MEDS ORDERED: ceFAZolin SODIUM 1 GM VIAL ONE (16:58)
[2017-03-19] MEDS ORDERED: ONDANSETRON 4 MG/2 ML VIAL IVPUSH PRN (17:38)
[2017-03-19] MEDS ORDERED: oxyCODONE HCL 5 MG TABLET PO PRN (17:38)
[2017-03-19] MEDS ORDERED: PROMETHAZINE HCL 25 MG/1 ML VIAL IVPUSH PRN (17:38)
--- NOTE | 2017-03-19 18:00 | PN ---
Teaching Attending Note Name of Resident: Antonio Gunter ATTENDING PHYSICIAN STATEMENT I saw and evaluated the patient. I reviewed the resident's note and discussed the case with the resident. I agree with the resident's findings and plan as documented. SUBJECTIVE: no fever or chills . pain is controlled OBJECTIVE: NAD, AAOx3. HEENT: MMM CV: RRR, 3/6 SM at RUSB, and LLSB. also to a lesser extent at apex . No JVD Lungs: CTAB Abd: soft, NT, ND , NL BS Ext: L leg in a mobilizer. edema over all leg and thigh down to foot. + bruising. DP 2+ b/l . can cover remover her L ankle and toes. nl warmth and nl color of foot. big fluid filled bulla around knee with no surrounding edema ( bigger today ) .R LE with no edema or erythema Assessment/Plan: 61 y/o lady with h/o HTN, DMII, HLP, and orthoscopic sx to L knee in past who presented with pain in L leg after a fall , she was found to have L tibia and fibula Fxs. 1- L tibia and fibula Fractures: no neuro vascular compromise of LLE. - cont oxycodone - DVT PX after sx per surgeon 2- H/o DM II: takes glipizid at home - cont SSI 3- HTN: cont lisinopril 4- Fever: monitor off abx.check UA 5- repeat electrolytes tomorrow 6- DVT Px family independence case manager updated on the need for placement if possible
[2017-03-19] MEDS: ATORVASTATIN CA 80 MG TABLET (FP) PO SCH (22:17)
[2017-03-20] MEDS: LACTATED RINGERS SOLUTION 1,000 ML IV SCH ×2 (00:20→14:34)
[2017-03-20] MEDS: oxyCODONE HCL 5 MG TABLET PO PRN ×5 (00:43→21:43)
[2017-03-20] MEDS: INSULIN SLIDING SCALE (NOVOLOG) 1 VIAL SQ SCH ×3 (06:53→17:12)
--- NOTE | 2017-03-20 07:12 | PN ---
Physical Exam: SUBJECTIVE: Patient seen and examined by me this AM - Pt w/ external fixator on L leg. Lying in bed in some discomfort. Some bleeding, sanguinous fluid drainage noted from surgical dressings - Pt complaining of pain and tenderness in leg. Denies any fever, SOB, CP, CASTILLO/ dizziness, N/V, abdominal pain, neuro symptoms. - Per Dr. Lyman, D/c tomorrow with ORIF once L LE skin healed. OBJECTIVE: Vital Signs Period Temp Pulse Resp BP Sys/Marquez Pulse Ox Last 24 Hr 98.3 F-99.5 F 70-107 14-21 80-149/46-82 100-100 GENERAL: Awake, alert, and fully oriented, in no acute distress. Romanian- speaking. HEAD: Normal with no signs of trauma. EYES: Pupils equal, round and reactive to light, extraocular movements intact, sclera anicteric, conjunctiva clear. No lid lag. EARS, NOSE, THROAT: Ears normal, nares patent, oropharynx clear without exudates. Moist mucous membranes. NECK: Normal range of motion, supple without lymphadenopathy, JVD, or masses. LUNGS: Breath sounds equal, clear to auscultation bilaterally. No wheezes, and no crackles. No accessory muscle use. HEART: 2/6 systolic ejection murmur in RUSB and LUSB border with radiation to carotids BL, normal S1 and S2 without any other m/c/g/r ABDOMEN: Soft, nontender, not distended, normoactive bowel sounds, no guarding, no rebound, no masses. No hepatomegaly UPPER EXTREMITIES: 2+ pulses, warm, well-perfused. No cyanosis. No clubbing. No peripheral edema. LOWER EXTREMITIES: Increased LE edema in lower shank and foot. Multiple Bulla still present on anterior L shank, no significant interval change. 2+ pulses DP , PT pulses in R foot. 2+ DP, PT in L foot. BL warm, well-perfused. No calf tenderness. still w L inflatable cast on L knee. 2+ non-pitting periarticular edema around L knee, lower shank and ankle. BL psoriatic rashes on anterior LEs still. 5/5 strength dorsi/plantarflexion BL; 5/5 strength at flexion/extension in R knee/hip. 5/5 strength flexion/extension at L hip, limited ROM at L knee. NEUROLOGICAL: Cranial nerves II-XII intact. Normal speech. Gait not evaluated. PSYCHIATRIC: Cooperative. Good eye contact. Appropriate mood and affect. SKIN: Warm, dry, normal turgor. Still with psoriatic rash noted on BL extensor surface of forearms, anterior surface of shanks. Laboratory Results - last 24 hr CBC, BMP CBC, BMP 03/20/17 07:20 03/20/17 07:20 03/18/17 06:20 03/17/17 04:34 03/18/17 03/19/17 17:03 06:39 POC Glucometer 277 196 Active Medications Generic Name Dose Route Start Last Admin Trade Name Freq PRN Reason Stop Dose Admin Atorvastatin Calcium 80 mg 03/19/17 22:00 03/19/17 22:17 Lipitor - PO 80 mg HS DARCI Administration Fentanyl 25 mcg 03/19/17 17:38 Sublimaze Injection - IVPUSH [id number] PRN PAIN Heparin Sodium (Porcine) 5,000 unit 03/20/17 14:00 Heparin - SQ TID DARCI Lactated Ringer's 1,000 mls @ 75 mls/hr 03/19/17 17:45 03/20/17 00:20 Lactated Ringers Solution IV 75 mls/hr ASDIR DARCI Administration Insulin Aspart 1 vial 03/20/17 07:00 03/20/17 06:53 Novolog Vial Sliding Scale - SQ 6 units TIDAC DARCI Administration Protocol Lisinopril 10 mg 03/20/17 10:00 Prinivil PO DAILY DARCI Ondansetron HCl 4 mg 03/19/17 17:38 Zofran Injection IVPUSH Q6H PRN NAUSEA AND/OR VOMITING Oxycodone HCl 5 mg 03/19/17 18:05 03/20/17 04:59 Roxicodone - PO 5 mg Q4H PRN Administration PAIN Promethazine HCl 12.5 mg 03/19/17 17:38 Phenergan Injection - IVPUSH Q6H PRN NAUSEA-FOR RESCUE AFTER 15 MIN Senna/Docusate Sodium 1 tablet 03/19/17 22:00 03/19/17 22:17 Pericolace - PO 1 tablet BID DAR[facility] Administration No Micro Imaging: ECHO 03/18 - Mild TR. Normal LV function. Mild Pulm htn, RV pressure 30-40 CXR 03/17 - Impression: Scoliosis. Large heart. Pacemaker. Clear lung bases. Constipation. No sign of free air or organomegaly. Possible left ureteral stone versus ngoc calcification by L4. EKG 03/17 - NSR. Rate in 90s. NAD. Small Q waves in II. TWI in V3-V4. No ST changes. No QTc prolongation CT L leg (my read) 03/17- L comminuted Tibial plateau fx and proximal fibula. Ankle/knee XR 03/17 - Proximal Tibial and fibular fx ASSESSMENT/PLAN: 61 yo woman w/ pmh of psoriasis, DM2 (non-insulin dependent), HTN, HLD, who presented to ED after mechanical fall while walking down stairs of her apartment building and striking her knee. Pt found to have proximal comminuted tibial fracture and fibular fx, in addition to elevated BG (339) and leukocytosis (15.2). POD1, w/ moderate pain at surgical site. Plan for two weeks bed-rest and then ORIF once skin has healed w/ Dr. Lyman. Currently with no PCP, so will refer to resident clinic. #Proximal L tibial and fibular fracture - confirmed on imaging - External fixator placed yesterday. Some bleeding, drainage noted in dressings. - Left knee immobilization in inflatable cast currently - Zofran for N/V - Serial LE neuro checks. - oxycodone 5mg PO q4h prn for pain. Fentanyl IV push for breakthrough pain. - DEXA scan as outpt - Calcium/vitamin D levels - Restart subQ heparin if surgical site bleeding stopped - Post-op management per surgical team - f/u for discharge plan. Pt cannot go home as she lives on 4th floor with no elevator. Tentative plan to go home with son until repeat sgx. - PT eval -> cast walking #DM2/hyperglycemia - BG 178 this AM - BGM Q4h - Insulin SS - Hgb A1c 9.5. Will require outpt f/u - Referral for PCP on discharge at resident clinic. - No med record at pharmacy. Unknown home insulin regimen, given pt with poor medical literacy. #HTN - 160/75 on admission. Good BP control since then. - Lisinopril 10mg PO daily #HLD - - atorvastatin 80mg PO #Systolic murmur - 3/6 systolic ejection murmur, radiating to carotids on exam - Echo - Mild TR. Normal LV function. Mild Pulm HTN, RV pressure 30-40 #Constipation - Senna, colace #PPX Heparin Subq FEN: Fluids: PO hydration Eletrolytes: Daily BMPs Nutrition: Diabetic diet. Dispo: Continue to monitor on MS for post-op management. D/c home tomorrow per surgical team. Plan discussed with attending, Dr. Gabriela Gunter, PGY1 Problem List - Problems (1) Hyperglycemia Code(s): R73.9 - HYPERGLYCEMIA, UNSPECIFIED (2) Tibia/fibula fracture Code(s): S82.209A - UNSP FRACTURE OF SHAFT OF UNSP TIBIA, INIT FOR CLOS FX; S82.409A - UNSP FRACTURE OF SHAFT OF UNSP FIBULA, INIT FOR CLOS FX Qualifiers: Encounter type: initial encounter Fracture type: closed Laterality: left Qualified Code(s): S82.202A - Unspecified fracture of shaft of left tibia, initial encounter for closed fracture; S82.402A - Unspecified fracture of shaft of left fibula, initial encounter for closed fracture; S82.402A - Unspecified fracture of shaft of left fibula, initial encounter for closed fracture Visit type - Emergency Visit Emergency Visit: Yes ED Registration Date: 03/17/17 Care time: The patient presented to the Emergency Department on the above date and was hospitalized for further evaluation of their emergent condition. - New Patient This patient is new to me today: No - Critical Care Critical Care patient: No
[2017-03-20 08:11] LABS: BASOPHIL 0.5 % (0-2.0); EOSINOPHIL 3.2 % (0-4.5); MCH 30.6 pg (25.7-33.7); MCHC 34.4 g/dl (32.0-36.0); MEAN CELL VOLUME 89.2 fl (80-96); MEAN PLT VOLUME 8.8 fl (7.5-11.1); NEUTROPHILS 63.2 % (42.8-82.8); PLATELET COUNT 242 K/MM3 (134-434); RDW 12.5 % (11.6-15.6); WHITE BLOOD COUNT 8.3 K/mm3 (4.0-10.0)
[2017-03-20 08:48] LABS: ANION GAP 6 (8-16); CALCIUM 8.1 mg/dL (8.5-10.1); CO2 30 mmol/L (21-32); CREATININE 0.5 mg/dL (0.55-1.02); GLUCOSE,RANDOM 178 mg/dL (74-106)
--- NOTE | 2017-03-20 08:53 | PN ---
Teaching Attending Note Name of Resident: Antonio Gunter ATTENDING PHYSICIAN STATEMENT I saw and evaluated the patient. I reviewed the resident's note and discussed the case with the resident. I agree with the resident's findings and plan as documented. SUBJECTIVE: OBJECTIVE: Vital Signs Temperature 98.8 F 03/20/17 05:50 Pulse Rate 101 H 03/20/17 05:50 Respiratory Rate 20 03/20/17 05:50 Blood Pressure 121/62 03/20/17 05:50 O2 Sat by Pulse Oximetry (%) 100 03/19/17 21:00 CBCD WBC 8.3 K/mm3 (4.0-10.0) 03/20/17 07:20 RBC 3.20 M/mm3 (3.60-5.2) L 03/20/17 07:20 Hgb 9.8 GM/dL (10.7-15.3) L 03/20/17 07:20 Hct 28.5 % (32.4-45.2) L 03/20/17 07:20 MCV 89.2 fl (80-96) 03/20/17 07:20 MCHC 34.4 g/dl (32.0-36.0) 03/20/17 07:20 RDW 12.5 % (11.6-15.6) 03/20/17 07:20 Plt Count 242 K/MM3 (134-434) D 03/20/17 07:20 MPV 8.8 fl (7.5-11.1) 03/20/17 07:20 CMP Sodium 137 mmol/L (136-145) 03/20/17 07:20 Potassium 4.2 mmol/L (3.5-5.1) 03/20/17 07:20 Chloride 101 mmol/L (98-107) 03/20/17 07:20 Carbon Dioxide 30 mmol/L (21-32) 03/20/17 07:20 Anion Gap 6 (8-16) L 03/20/17 07:20 BUN 8 mg/dL (7-18) D 03/20/17 07:20 Creatinine 0.5 mg/dL (0.55-1.02) L D 03/20/17 07:20 Creat Clearance w eGFR > 60 (>60) 03/17/17 04:34 Random Glucose 178 mg/dL (74-106) H D 03/20/17 07:20 Calcium 8.1 mg/dL (8.5-10.1) L 03/20/17 07:20 Total Bilirubin 0.3 mg/dL (0.2-1.0) 03/17/17 04:34 AST 18 U/L (15-37) 03/17/17 04:34 ALT 35 U/L (12-78) 03/17/17 04:34 Alkaline Phosphatase 95 U/L (45-117) 03/17/17 04:34 Total Protein 6.5 g/dl (6.4-8.2) 03/17/17 04:34 Albumin 3.8 g/dl (3.4-5.0) 03/17/17 04:34 Current Medications Generic Name Dose Route Start Last Admin Trade Name Freq PRN Reason Stop Dose Admin Atorvastatin Calcium 80 mg 03/19/17 22:00 03/19/17 22:17 Lipitor - PO 80 mg HS DARCI Administration Fentanyl 25 mcg 03/19/17 17:38 Sublimaze Injection - IVPUSH [id number] PRN PAIN Heparin Sodium (Porcine) 5,000 unit 03/20/17 14:00 Heparin - SQ TID DARCI Lactated Ringer's 1,000 mls @ 75 mls/hr 03/19/17 17:45 03/20/17 00:20 Lactated Ringers Solution IV 75 mls/hr ASDIR DARCI Administration Insulin Aspart 1 vial 03/20/17 07:00 03/20/17 06:53 Novolog Vial Sliding Scale - SQ 6 units TIDAC DARCI Administration Protocol Lisinopril 10 mg 03/20/17 10:00 Prinivil PO DAILY DARCI Ondansetron HCl 4 mg 03/19/17 17:38 Zofran Injection IVPUSH Q6H PRN NAUSEA AND/OR VOMITING Oxycodone HCl 5 mg 03/19/17 18:05 03/20/17 04:59 Roxicodone - PO 5 mg Q4H PRN Administration PAIN Promethazine HCl 12.5 mg 03/19/17 17:38 Phenergan Injection - IVPUSH Q6H PRN NAUSEA-FOR RESCUE AFTER 15 MIN Senna/Docusate Sodium 1 tablet 03/19/17 22:00 03/19/17 22:17 Pericolace - PO 1 tablet BID DARCI Administration PE: NAD, AAOx3. HEENT: MMM CV: RRR, 3/6 SM at RUSB, and LLSB. also to a lesser extent at apex . No JVD Lungs: CTAB Abd: soft, NT, ND , NL BS Ext: L leg in a mobilizer. edema over all leg and thigh down to foot. + bruising. DP 2+ b/l . can gum remover her L ankle and toes. nl warmth and nl color of foot. big fluid filled bulla around knee with no surrounding edema ( bigger today ) .R LE with no edema or erythema Assessment/Plan: 61 y/o lady with h/o HTN, DMII, HLP, and orthoscopic sx to L knee in past who presented with pain in L leg after a fall , she was found to have L tibia and fibula Fxs. # Acute Left tibia and fibula Fractures: no neuro vascular compromise of LLE cont. oxycodone, will check with Ortho in regards her dc in am # DM II: on SSI , on glipizide at home # HTN: cont lisinopril # Fever: monitor off abx.check UA DVT Px: Heparin as per ortho possible placement/ home in am
[2017-03-20] MEDS: SENNOSIDES/DOCUSATE COMBO (SENNA PLUS) TABLET (UD) PO SCH ×2 (09:54→21:42)
[2017-03-20] MEDS: LISINOPRIL 10 MG TABLET (FP) PO SCH (09:54)
--- NOTE | 2017-03-20 09:58 | PN ---
Progress Note (short form) - Note Progress Note: AVSS COMFORTABLE CALF SOFT AND NT NVI X-FIX IN PLACE AND STABLE IMP: DOING WELL PLAN:l PT, NWB, DC TOMORROW AND F/U OUTPATIENT. RETURN FOR ORIF ONCE SKIN IMPROVES
--- NOTE | 2017-03-20 13:50 | OP ---
DATE OF OPERATION: 03/19/2017 PREOPERATIVE DIAGNOSIS: Left comminuted tibial plateau fracture with significant fracture blisters. POSTOPERATIVE DIAGNOSIS: Left comminuted tibial plateau fracture with significant fracture blisters. PROCEDURE: Debridement of fracture blisters, closed reduction, and application of provisional external fixator. SURGICAL ATTENDING: Everett Lyman MD ADVISOR [employer] F[employer]ER: Stanton Casiano MD ANESTHESIA: Spinal. CLOSURE: Judy external fixator and Xeroform for the blisters. ESTIMATED BLOOD LOSS: Negligible. COMPLICATIONS: None. CONDITION: To recovery room in stable condition. INDICATION FOR OPERATIVE PROCEDURE: The patient is status post fall down a flight of stairs sustaining a Schatzker 6 proximal tibial plateau fracture. The patient immediately developed significant swelling and fracture blisters while in the splint. Initially, we were going to do an open reduction internal fixation, but after seeing the extensive nature of the fracture blisters, we have elected to debride the blisters and apply an external fixator provisionally allowing the soft tissue to calm down and then bring the patient back at a later date to do an open reduction internal fixation. DESCRIPTION OF OPERATIVE PROCEDURE: The patient was taken to the operating room on March 19, 2017. Spinal anesthesia was administered by the anesthesiologist. IV Keflex was administered prophylactically prior to the case. The left lower extremity was prepped and draped in the usual sterile fashion. First the blisters were unroofed. The skin around was all debrided. The area was then cleaned with Betadine scrub. Two small stab incisions were done on the anterolateral proximal femur away from the knee joint drilling bicortical pins through these. Proper placement was confirmed by image intensification. A 5-hole clamp was clamped to these pins with sufficient space to allow for swelling and soft tissue passage underneath. The area distal to the blisters was found to be distal to the fracture. Two pins were drilled through 2 small stab incisions below the lowest blister drilling bicortically. Again, proper placement was confirmed by the image intensifier. Again, to these pins was attached a 5-pin clamp. In both clamps, the pins were in the 1 and 5 position. They were tightened snugly. Two outriggers, one medial and laterally, were applied to the 5-hole clamp. Two rods were then placed, anteromedially and posterolaterally with traction being applied. The clamps were then tightened down on the bars achieving excellent rigidity. Fluoroscopy in the AP and lateral views revealed excellent position of the fracture. The leg was thoroughly cleaned again. Xeroform sheets were placed over the blisters, which were circumferentially around the whole proximal calf and anterior tibia. Around each pin was placed a Xeroform as well and then a sterile pressure dressing was applied over the entire construct. The patient was transferred to the recovery room in stable condition. No complications. Estimated blood loss negligible. [place] DE [id number]
[2017-03-20] MEDS: HEPARIN NA (PORCINE) 5,000 UNITS/ML 1ML VIAL SQ SCH ×2 (14:00→21:43)
--- NOTE | 2017-03-20 15:38 | PN ---
Progress Note, Physician Chief Complaint: Pt. pain controlled, no anesthesia complaints. - Current Medication List Current Medications: Active Medications Atorvastatin Calcium (Lipitor -) 80 mg PO HS [facility] Last Admin: 03/19/17 22:17 Dose: 80 mg Fentanyl (Sublimaze Injection -) 25 mcg IVPUSH [id number] PRN PRN Reason: PAIN Heparin Sodium (Porcine) (Heparin -) 5,000 unit SQ TID [facility] Lactated Ringer's (Lactated Ringers Solution) 1,000 mls @ 75 mls/hr IV ASDIR [facility] Last Admin: 03/20/17 14:34 Dose: 75 mls/hr Insulin Aspart (Novolog Vial Sliding Scale -) 1 vial SQ TIDAC [facility] PRN Reason: Protocol Last Admin: 03/20/17 11:33 Dose: 6 units Lisinopril (Prinivil) 10 mg PO DAILY [facility] Last Admin: 03/20/17 09:54 Dose: 10 mg Ondansetron HCl (Zofran Injection) 4 mg IVPUSH Q6H PRN PRN Reason: NAUSEA AND/OR VOMITING Oxycodone HCl (Roxicodone -) 5 mg PO Q4H PRN PRN Reason: PAIN Last Admin: 03/20/17 04:59 Dose: 5 mg Oxycodone HCl (Roxicodone -) 10 mg PO Q4H PRN PRN Reason: SEVERE PAIN Last Admin: 03/20/17 09:56 Dose: 10 mg Promethazine HCl (Phenergan Injection -) 12.5 mg IVPUSH Q6H PRN PRN Reason: NAUSEA-FOR RESCUE AFTER 15 MIN Senna/Docusate Sodium (Pericolace -) 1 tablet PO BID [facility] Last Admin: 03/20/17 09:54 Dose: 1 tablet - Objective Vital Signs: Vital Signs Temperature 98.7 F 03/20/17 14:00 Pulse Rate 101 H 03/20/17 05:50 Respiratory Rate 20 03/20/17 05:50 Blood Pressure 121/62 03/20/17 05:50 O2 Sat by Pulse Oximetry (%) 100 03/19/17 21:00 Constitutional: Yes: Well Nourished, No Distress, Calm Musculoskeletal: Yes: WNL Neurological: Yes: WNL, Alert, Oriented Labs: CBC, BMP 03/20/17 07:20 03/20/17 07:20 INR, PTT INR 1.05 (0.82-1.09) 03/17/17 04:34 Assessment/Plan POD#1 s/p external fixation of left tibia under spinal. Doing well. D/C from anesthesia care.
[2017-03-20] MEDS: ATORVASTATIN CA 80 MG TABLET (FP) PO SCH (21:43)
[2017-03-21] MEDS: LACTATED RINGERS SOLUTION 1,000 ML IV SCH ×3 (04:25→17:03)
[2017-03-21] MEDS: HEPARIN NA (PORCINE) 5,000 UNITS/ML 1ML VIAL SQ SCH ×3 (05:23→23:13)
[2017-03-21] MEDS: oxyCODONE HCL 5 MG TABLET PO PRN ×2 (05:25→19:54)
[2017-03-21] MEDS ORDERED: INSULIN (NOVOLOG) ASPART 100 UNITS/ML 10ML VIAL ONE (06:39)
[2017-03-21] MEDS: INSULIN SLIDING SCALE (NOVOLOG) 1 VIAL SQ SCH ×3 (06:40→17:03)
[2017-03-21 07:53] LABS: MCH 30.5 pg (25.7-33.7); MCHC 33.9 g/dl (32.0-36.0); MEAN CELL VOLUME 90.1 fl (80-96); MEAN PLT VOLUME 8.8 fl (7.5-11.1); PLATELET COUNT 269 K/MM3 (134-434); RDW 12.5 % (11.6-15.6)
[2017-03-21 08:14] LABS: ANION GAP 8 (8-16); CALCIUM 8.5 mg/dL (8.5-10.1); CO2 32 mmol/L (21-32); CREATININE 0.6 mg/dL (0.55-1.02); GLUCOSE,RANDOM 231 mg/dL (74-106)
--- NOTE | 2017-03-21 08:31 | PN ---
Physical Exam: SUBJECTIVE: Patient seen and examined by me this AM - No major overnight events. Febrile again, to 101.4 this AM with tachycardia to 112. Blood culture, UA, CXR sent - Still with significant pain at external fixator site. Has required 55mg of oxycodone PO for pain control. Unable to ambulate with PT, only standing. - Denies any chills, CASTILLO/dizziness, cough, sob, cp, palpitations, n/v, abdominal pain, dysuria, diarrhea, rashes or new neuro symptoms. - Tentative plan to [place] for rehab for one week. SW aware, attempting to coordinate placement. If not, plan to send home with son, as pt live on 4th floor of apartment building with no elevator. Will require surgical revision w/ ORIF in two weeks per Dr. Lyman. - Will defer to surgical team for post-op care/pain management. OBJECTIVE: Vital Signs Intake & Output 03/18/17 03/19/17 03/20/17 03/21/17 23:59 23:59 23:59 23:59 Intake Total 950 1900 1600 900 Output Total 200 1100 Balance 950 1700 500 900 Period Temp Pulse Resp BP Sys/Marquez Pulse Ox Last 24 Hr 98.3 F-100.4 F 100-112 18-20 114-153/62-79 98 GENERAL: Awake, alert, and fully oriented, in no acute distress. Luxembourgish- speaking. HEAD: Normal with no signs of trauma. EYES: Pupils equal, round and reactive to light, extraocular movements intact, sclera anicteric, conjunctiva clear. No lid lag. EARS, NOSE, THROAT: Ears normal, nares patent, oropharynx clear without exudates. Moist mucous membranes. LUNGS: Decreased breath sounds at bases. No wheezes, and no crackles. No accessory muscle use. HEART: Still w/ 2/6 systolic ejection murmur in RUSB border with radiation to carotids BL, normal S1 and S2 without any other m/c/g/r. No carotid bruit noted. ABDOMEN: Soft, nontender, not distended, normoactive bowel sounds, no guarding, no rebound, no masses. No hepatomegaly UPPER EXTREMITIES: 2+ pulses, warm, well-perfused. No cyanosis. No clubbing. No peripheral edema. BL healed psoriatic rash on forearms. LOWER EXTREMITIES: 2+ pitting edema in L leg and foot. Unable to evaluate bullous dz given bandages. Still w/ 2+ pulses DP, PT pulses in R foot. 1+ DP, 2 + PT in L foot, 2+ pitting edema w/ no significant interval change since yesterday. BL WWP. External fixator in place on L leg, wrapped with bandages. Mild dry blood noted at inferior fixation site. NEUROLOGICAL: Cranial nerves II-XII intact. Normal speech. Gait not evaluated. 5/5 strength dorsi/plantarflexion BL; 5/5 strength at flexion/extension in R knee/hip. 5/5 strength flexion/extension at L hip, unable to flex at L knee. preserved sensation to light touch BL in feet and upper thigh. PSYCHIATRIC: Cooperative. Good eye contact. Appropriate mood and affect. SKIN: Warm, dry, normal turgor. Still with psoriatic rash noted on BL extensor surface of forearms, anterior surface of R leg. Laboratory Results - last 24 hr CBC, BMP CBC, BMP 03/21/17 06:35 03/21/17 06:35 03/19/17 03/20/17 03/20/17 18:09 07:20 07:20 WBC 8.3 RBC 3.20 L Hgb 9.8 L Hct 28.5 L MCV 89.2 MCH 30.6 MCHC 34.4 RDW 12.5 Plt Count 242 D MPV 8.8 Neutrophils % 63.2 Lymphocytes % 23.8 Monocytes % 9.3 Eosinophils % 3.2 D Basophils % 0.5 Sodium 137 Potassium 4.2 Chloride 101 Carbon Dioxide 30 Anion Gap 6 L BUN 8 D Creatinine 0.5 L D POC Glucometer 145 Random Glucose 178 H D Calcium 8.1 L Phosphorus 3.0 D Magnesium 2.0 03/20/17 03/20/17 03/21/17 11:31 17:10 05:24 WBC RBC Hgb Hct MCV MCH MCHC RDW Plt Count MPV Neutrophils % Lymphocytes % Monocytes % Eosinophils % Basophils % Sodium Potassium Chloride Carbon Dioxide Anion Gap BUN Creatinine POC Glucometer 237 251 207 Random Glucose Calcium Phosphorus Magnesium 03/21/17 06:35 WBC 10.0 RBC 2.95 L Hgb 9.0 L Hct 26.6 L MCV 90.1 MCH 30.5 MCHC 33.9 RDW 12.5 Plt Count 269 MPV 8.8 Neutrophils % Lymphocytes % Monocytes % Eosinophils % Basophils % Sodium Potassium Chloride Carbon Dioxide Anion Gap BUN Creatinine POC Glucometer Random Glucose Calcium Phosphorus Magnesium Active Medications Generic Name Dose Route Start Last Admin Trade Name Elizabeth PRN Reason Stop Dose Admin Atorvastatin Calcium 80 mg 03/19/17 22:00 03/20/17 21:43 Lipitor - PO 80 mg HS DARCI Administration Fentanyl 25 mcg 03/19/17 17:38 Sublimaze Injection - IVPUSH [id number] PRN PAIN Heparin Sodium (Porcine) 5,000 unit 03/20/17 14:00 03/21/17 05:23 Heparin - SQ 5,000 unit TID DARCI Administration Lactated Ringer's 1,000 mls @ 75 mls/hr 03/19/17 17:45 03/21/17 04:25 Lactated Ringers Solution IV 75 mls/hr ASDIR DARCI Administration Insulin Aspart 1 vial 03/20/17 07:00 03/21/17 06:40 Novolog Vial Sliding Scale - SQ 6 units TIDAC DARCI Administration Protocol Lisinopril 10 mg 03/20/17 10:00 03/20/17 09:54 Prinivil PO 10 mg DAILY DARCI Administration Ondansetron HCl 4 mg 03/19/17 17:38 Zofran Injection IVPUSH Q6H PRN NAUSEA AND/OR VOMITING Oxycodone HCl 5 mg 03/19/17 18:05 03/20/17 04:59 Roxicodone - PO 5 mg Q4H PRN Administration PAIN Oxycodone HCl 10 mg 03/20/17 09:44 03/21/17 05:25 Roxicodone - PO 10 mg Q4H PRN Administration SEVERE PAIN Promethazine HCl 12.5 mg 03/19/17 17:38 Phenergan Injection - IVPUSH Q6H PRN NAUSEA-FOR RESCUE AFTER 15 MIN Senna/Docusate Sodium 1 tablet 03/19/17 22:00 03/20/17 21:42 Pericolace - PO 1 tablet BID DARCI Administration Blood cultures pending Imaging: ECHO 03/18 - Mild TR. Normal LV function. Mild Pulm htn, RV pressure 30-40 CXR 03/17 - Impression: Scoliosis. Large heart. Pacemaker. Clear lung bases. Constipation. No sign of free air or organomegaly. Possible left ureteral stone versus ngoc calcification by L4. EKG 03/17 - NSR. Rate in 90s. NAD. Small Q waves in II. TWI in V3-V4. No ST changes. No QTc prolongation CT L leg (my read) 03/17- L comminuted Tibial plateau fx and proximal fibula. Ankle/knee XR 03/17 - Proximal Tibial and fibular fx 03/19 - Fluoro of fixator performed yesterday. Not read. CXR 03/21 - No acute pathology noted. ASSESSMENT/PLAN: 61 yo woman w/ pmh of psoriasis, DM2 (non-insulin dependent), HTN, HLD, who presented to ED after mechanical fall while walking down stairs of her apartment building and striking her knee. Pt found to have proximal comminuted tibial fracture and fibular fx, in addition to elevated BG (339) and leukocytosis (15.2). POD2, still w/ significant surgical site pain, denies any neuro or vascular changes in L leg. Will attempt fo NH placement for 1week w/ rehab. Otherwise, will d/c home with son for two weeks bed-rest and then ORIF once skin has healed w/ Dr. Lyman. Febrile, tachy overnight, with no wbc count. Blood cultures sent, ua, cxr. Currently with no PCP, so will refer to resident clinic. #Proximal L tibial and fibular fracture - confirmed on imaging - External fixator placed two days ago. Less bleeding, drainage today. - Zofran for N/V - Serial LE neuro checks. - oxycodone aternating 5mg/10mg PO q4h prn for pain. Fentanyl IV push for breakthrough pain. - DEXA scan as outpt - Calcium/vitamin D levels - SubQ heparin TID - Post-op management per surgical team - f/u for discharge plan. Pt cannot go home as she lives on 4th floor with no elevator. Tentative plan to go home with son until repeat sgx. - PT eval again today. #DM2/hyperglycemia - BG up to 251 overnight. - BGM Q4h - Insulin SS - Hgb A1c 9.5. Will require outpt f/u - Referral for PCP on discharge at resident clinic. - No med record at pharmacy. Unknown home insulin regimen, given pt with poor medical literacy. #Fever - 101.4 this AM. Denies fever/chills, infectious symptoms. WBC 10 this AM - f/u blood cx's, UA - CXR w/ no infiltrates - Trend fever, WBC - Daily CBCs #HTN - 153/79 overnight. Continue current regimen. - Lisinopril 10mg PO daily #HLD - - atorvastatin 80mg PO #Systolic murmur - 3/6 systolic ejection murmur, radiating to carotids on exam - Echo - Mild TR. Normal LV function. Mild Pulm HTN, RV pressure 30-40 #Constipation - Senna, colace #PPX Heparin Subq, SCD on R leg FEN: Fluids: LR 100cc/hr Eletrolytes: Daily BMPs Nutrition: Diabetic diet Dispo: Continue to monitor on med-surg for post-op management. Will require further work-up of fever and f/u with NH for possible placement until she can be discharged. Plan discussed with attending, Dr. Gabriela Gunter, PGY1 Problem List - Problems (1) Hyperglycemia Code(s): R73.9 - HYPERGLYCEMIA, UNSPECIFIED (2) Tibia/fibula fracture Code(s): S82.209A - UNSP FRACTURE OF SHAFT OF UNSP TIBIA, INIT FOR CLOS FX; S82.409A - UNSP FRACTURE OF SHAFT OF UNSP FIBULA, INIT FOR CLOS FX Qualifiers: Encounter type: initial encounter Fracture type: closed Laterality: left Qualified Code(s): S82.202A - Unspecified fracture of shaft of left tibia, initial encounter for closed fracture; S82.402A - Unspecified fracture of shaft of left fibula, initial encounter for closed fracture; S82.402A - Unspecified fracture of shaft of left fibula, initial encounter for closed fracture Visit type - Emergency Visit Emergency Visit: Yes ED Registration Date: 03/17/17 Care time: The patient presented to the Emergency Department on the above date and was hospitalized for further evaluation of their emergent condition. - New Patient This patient is new to me today: No - Critical Care Critical Care patient: No
[2017-03-21] MEDS ORDERED: ACETAMINOPHEN 325 MG TABLET (FP) PO ONE (09:45)
[2017-03-21] MEDS: LISINOPRIL 10 MG TABLET (FP) PO SCH (09:53)
[2017-03-21] MEDS: SENNOSIDES/DOCUSATE COMBO (SENNA PLUS) TABLET (UD) PO SCH ×2 (09:53→23:13)
--- NOTE | 2017-03-21 09:53 | PN ---
Progress Note (short form) - Note Progress Note: Ortho Pt seen and examined s/p left LE ext fix pod #2 Selected Entries 03/21/17 05:53 Temperature 100.4 F H Pulse Rate 110 H Respiratory 20 Rate Blood Pressure 114/62 Laboratory Tests 03/21/17 06:35 WBC 10.0 Hgb 9.0 L Hct 26.6 L Plt Count 269 dressing slightly saturated, ext fix in place nvi a/p dressing changed PT, NWB pain control may d/c today pending PT
[2017-03-21 11:19] LABS: URINE APPEARANCE CLEAR; URINE BILIRUBIN NEGATIVE (NEGATIVE); URINE BLOOD NEGATIVE (NEGATIVE); URINE COLOR LTYELLOW; URINE GLUCOSE (UA) 3+ (NEGATIVE); URINE KETONE 1+ (NEGATIVE); URINE LEUK ESTERASE 1+ (NEGATIVE); URINE NITRITE NEGATIVE (NEGATIVE); URINE PROTEIN NEGATIVE (NEGATIVE)
[2017-03-21 11:32] LABS: URINE RBC <1 /hpf (0-3); URINE WBC 13 /hpf (3-5)
[2017-03-21 18:00] LABS: URINE LEUK ESTERASE 1+ (NEGATIVE)
--- NOTE | 2017-03-21 20:36 | PN ---
Teaching Attending Note Name of Resident: Antonio Gunter ATTENDING PHYSICIAN STATEMENT I saw and evaluated the patient. I reviewed the resident's note and discussed the case with the resident. I agree with the resident's findings and plan as documented. SUBJECTIVE: Patient is lying in bed with no acute distress, no shortness of breath. comfortable. OBJECTIVE: Vital Signs Temperature 98.7 F 03/21/17 18:00 Pulse Rate 91 H 03/21/17 18:00 Respiratory Rate 20 03/21/17 18:00 Blood Pressure 106/58 03/21/17 18:00 O2 Sat by Pulse Oximetry (%) 97 03/21/17 09:56 CBCD WBC 10.0 K/mm3 (4.0-10.0) 03/21/17 06:35 RBC 2.95 M/mm3 (3.60-5.2) L 03/21/17 06:35 Hgb 9.0 GM/dL (10.7-15.3) L 03/21/17 06:35 Hct 26.6 % (32.4-45.2) L 03/21/17 06:35 MCV 90.1 fl (80-96) 03/21/17 06:35 MCHC 33.9 g/dl (32.0-36.0) 03/21/17 06:35 RDW 12.5 % (11.6-15.6) 03/21/17 06:35 Plt Count 269 K/MM3 (134-434) 03/21/17 06:35 MPV 8.8 fl (7.5-11.1) 03/21/17 06:35 CMP Sodium 137 mmol/L (136-145) 03/21/17 06:35 Potassium 4.5 mmol/L (3.5-5.1) 03/21/17 06:35 Chloride 97 mmol/L (98-107) L 03/21/17 06:35 Carbon Dioxide 32 mmol/L (21-32) 03/21/17 06:35 Anion Gap 8 (8-16) 03/21/17 06:35 BUN 11 mg/dL (7-18) D 03/21/17 06:35 Creatinine 0.6 mg/dL (0.55-1.02) 03/21/17 06:35 Creat Clearance w eGFR > 60 (>60) 03/17/17 04:34 Random Glucose 231 mg/dL (74-106) H D 03/21/17 06:35 Calcium 8.5 mg/dL (8.5-10.1) 03/21/17 06:35 Total Bilirubin 0.3 mg/dL (0.2-1.0) 03/17/17 04:34 AST 18 U/L (15-37) 03/17/17 04:34 ALT 35 U/L (12-78) 03/17/17 04:34 Alkaline Phosphatase 95 U/L (45-117) 03/17/17 04:34 Total Protein 6.5 g/dl (6.4-8.2) 03/17/17 04:34 Albumin 3.8 g/dl (3.4-5.0) 03/17/17 04:34 Current Medications Generic Name Dose Route Start Last Admin Trade Name Freq PRN Reason Stop Dose Admin Atorvastatin Calcium 80 mg 03/19/17 22:00 03/20/17 21:43 Lipitor - PO 80 mg HS DARCI Administration Fentanyl 25 mcg 03/19/17 17:38 Sublimaze Injection - IVPUSH [id number] PRN PAIN Heparin Sodium (Porcine) 5,000 unit 03/20/17 14:00 03/21/17 14:30 Heparin - SQ 5,000 unit TID DARCI Administration Lactated Ringer's 1,000 mls @ 100 mls/hr 03/21/17 10:27 03/21/17 17:03 Lactated Ringers Solution IV 100 mls/hr ASDIR DARCI Administration Insulin Aspart 1 vial 03/20/17 07:00 03/21/17 17:03 Novolog Vial Sliding Scale - SQ 4 units TIDAC DARCI Administration Protocol Lisinopril 10 mg 03/20/17 10:00 03/21/17 09:53 Prinivil PO 10 mg DAILY DARCI Administration Ondansetron HCl 4 mg 03/19/17 17:38 Zofran Injection IVPUSH Q6H PRN NAUSEA AND/OR VOMITING Oxycodone HCl 5 mg 03/19/17 18:05 03/20/17 04:59 Roxicodone - PO 5 mg Q4H PRN Administration PAIN Oxycodone HCl 10 mg 03/20/17 09:44 03/21/17 19:54 Roxicodone - PO 10 mg Q4H PRN Administration SEVERE PAIN Promethazine HCl 12.5 mg 03/19/17 17:38 Phenergan Injection - IVPUSH Q6H PRN NAUSEA-FOR RESCUE AFTER 15 MIN Senna/Docusate Sodium 1 tablet 03/19/17 22:00 03/21/17 09:53 Pericolace - PO 1 tablet BID DARCI Administration Home Medications Medication Instructions Recorded Oxycodone HCl/Acetaminophen 1 each PO Q6H #50 tablet MDD 4 03/21/17 [Percocet 10-325 mg Tablet] PE: per resident's note ASSESSMENT AND PLAN: 61 y/o lady with h/o HTN, DMII, HLP, and orthoscopic sx to L knee in past who presented with pain in L leg after a fall , she was found to have L tibia and fibula Fxs. # Acute Left tibia and fibula Fractures:continue with immo no neuro vascular compromise of LLE cont. oxycodone, will check with Ortho in regards her dc plan. # T2DM on SSI , on glipizide at home continue # HTN: cont lisinopril # Fever: monitor off abx.check UA DVT Px: Heparin as per ortho possible placement/ home in am
[2017-03-21] MEDS: ATORVASTATIN CA 80 MG TABLET (FP) PO SCH (23:13)
[2017-03-22] MEDS: oxyCODONE HCL 5 MG TABLET PO PRN ×3 (01:12→20:02)
[2017-03-22] MEDS: HEPARIN NA (PORCINE) 5,000 UNITS/ML 1ML VIAL SQ SCH (06:08)
[2017-03-22] MEDS ORDERED: INSULIN (NOVOLOG) ASPART 100 UNITS/ML 10ML VIAL ONE (06:52)
[2017-03-22] MEDS: INSULIN SLIDING SCALE (NOVOLOG) 1 VIAL SQ SCH ×3 (07:03→17:06)
--- NOTE | 2017-03-22 09:07 | PN ---
Physical Exam: SUBJECTIVE: Patient seen and examined by me this AM - No major overnight events. Still with significant pain in L leg. Able to ambulate a few steps with PT yesterday, but stopped due to pain. Bleeding at surgical fixation site noted. Heparin held. Afebrile overnight. - Denied for placement at [facility] per SW. Attempting to place at [facility]. - Denies any fever, chills, CP, sob, N/V, abdominal pain, dysuria, leg swelling , new neuro symptoms - Cleared for d/c by Dr. lyman with f/u in 2 weeks. OBJECTIVE: Vital Signs Intake & Output 03/19/17 03/20/17 03/21/17 03/22/17 23:59 23:59 23:59 23:59 Intake Total 1900 1600 2550 1100 Output Total 200 1100 2100 400 Balance 1700 500 450 700 Period Temp Pulse Resp BP Sys/Marquez Pulse Ox Last 24 Hr 97.8 F-99.5 F 89-102 18-20 106-133/57-78 97-99 GENERAL: Awake, alert, and fully oriented, in no acute distress. Guyanese- speaking. HEAD: Normal with no signs of trauma. EYES: Pupils equal, round and reactive to light, extraocular movements intact, sclera anicteric, conjunctiva clear. No lid lag. EARS, NOSE, THROAT: Ears normal, nares patent, oropharynx clear without exudates. Moist mucous membranes. LUNGS: CTABL. No wheezes, and no crackles. No accessory muscle use. HEART: 2/6 systolic ejection murmur in RUSB border with radiation to carotids BL , normal S1 and S2 without any other m/c/g/r. No carotid bruit noted. ABDOMEN: Soft, nontender, not distended, normoactive bowel sounds, no guarding, no rebound, no masses. No hepatomegaly UPPER EXTREMITIES: 2+ pulses, warm, well-perfused. No cyanosis. No clubbing. No peripheral edema. BL healed psoriatic rash on forearms. LOWER EXTREMITIES: No change in 2+ pitting edema in L leg and foot. 2+ pulses DP , PT pulses in R foot. 1+ DP, 2+ PT in L foot. BL WWP. External fixator in place on L leg, fresh blood noted on bandages at fixator contact point. NEUROLOGICAL: Cranial nerves II-XII intact. Normal speech. Gait not evaluated. 5/5 strength dorsi/plantarflexion BL; 5/5 strength at flexion/extension in R knee/hip. 5/5 strength flexion/extension at L hip, unable to flex at L knee. Preserved sensation to light touch BL. SKIN: Still with psoriatic rash noted on BL extensor surface of forearms, anterior surface of R leg. Laboratory Results - last 24 hr CBC, BMP 03/22/17 08:00 03/22/17 08:00 03/21/17 03/21/17 03/21/17 06:35 10:30 11:47 Sodium 137 Potassium 4.5 Chloride 97 L Carbon Dioxide 32 Anion Gap 8 BUN 11 D Creatinine 0.6 POC Glucometer 228 Random Glucose 231 H D Calcium 8.5 Urine Color Ltyellow Urine Appearance Clear Urine pH 7.0 Ur Specific [place] 1.009 Urine Protein Negative Urine Glucose (UA) 3+ H Urine Ketones 1+ H Urine Blood Negative Urine Nitrite Negative Urine Bilirubin Negative Urine Urobilinogen 2.0 H Ur Leukocyte Esterase 1+ H Urine WBC (Auto) 13 Urine RBC (Auto) <1 Ur Epithelial Cells Rare 03/21/17 03/22/17 03/22/17 17:00 05:29 06:11 Sodium Potassium Chloride Carbon Dioxide Anion Gap BUN Creatinine POC Glucometer 183 198 198 Random Glucose Calcium Urine Color Urine Appearance Urine pH Ur Specific [place] Urine Protein Urine Glucose (UA) Urine Ketones Urine Blood Urine Nitrite Urine Bilirubin Urine Urobilinogen Ur Leukocyte Esterase Urine WBC (Auto) Urine RBC (Auto) Ur Epithelial Cells Active Medications Generic Name Dose Route Start Last Admin Trade Name Elizabeth PRN Reason Stop Dose Admin Atorvastatin Calcium 80 mg 03/19/17 22:00 03/21/17 23:13 Lipitor - PO 80 mg HS DARCI Administration Heparin Sodium (Porcine) 5,000 unit 03/20/17 14:00 03/22/17 06:08 Heparin - SQ 5,000 unit TID DARCI Administration Lactated Ringer's 1,000 mls @ 100 mls/hr 03/21/17 10:27 03/21/17 17:03 Lactated Ringers Solution IV 100 mls/hr ASDIR DARCI Administration Insulin Aspart 1 vial 03/20/17 07:00 03/22/17 07:03 Novolog Vial Sliding Scale - SQ 4 units TIDAC DARCI Administration Protocol Lisinopril 10 mg 12/06/17 10:00 03/21/17 09:53 Prinivil PO 10 mg DAILY DARCI Administration Ondansetron HCl 4 mg 03/19/17 17:38 Zofran Injection IVPUSH Q6H PRN NAUSEA AND/OR VOMITING Oxycodone HCl 5 mg 03/19/17 18:05 03/22/17 01:12 Roxicodone - PO 5 mg Q4H PRN Administration PAIN Oxycodone HCl 10 mg 03/20/17 09:44 03/21/17 19:54 Roxicodone - PO 10 mg Q4H PRN Administration SEVERE PAIN Promethazine HCl 12.5 mg 03/19/17 17:38 Phenergan Injection - IVPUSH Q6H PRN NAUSEA-FOR RESCUE AFTER 15 MIN Senna/Docusate Sodium 1 tablet 03/19/17 22:00 03/21/17 23:13 Pericolace - PO 1 tablet BID DARCI Administration Micro pending Imaging: ECHO 03/18 - Mild TR. Normal LV function. Mild Pulm htn, RV pressure 30-40 CXR 03/17 - Impression: Scoliosis. Large heart. Pacemaker. Clear lung bases. Constipation. No sign of free air or organomegaly. Possible left ureteral stone versus ngoc calcification by L4. EKG 03/17 - NSR. Rate in 90s. NAD. Small Q waves in II. TWI in V3-V4. No ST changes. No QTc prolongation CT L leg (my read) 03/17- L comminuted Tibial plateau fx and proximal fibula. Ankle/knee XR 03/17 - Proximal Tibial and fibular fx 03/19 - Fluoro of fixator performed yesterday. Not read. CXR 03/21 - No acute pathology noted. ASSESSMENT/PLAN: 61 yo woman w/ pmh of psoriasis, DM2 (non-insulin dependent), HTN, HLD, who presented to ED after mechanical fall while walking down stairs of her apartment building and striking her knee. Pt found to have proximal comminuted tibial fracture and fibular fx, in addition to elevated BG (339) and leukocytosis (15.2). POD3, still w/ significant surgical site pain, denies any neuro or vascular changes in L leg. Pt denied for NH placement at [facility] today, attempting for placement at [facility]. Otherwise, will d/c home with son for two weeks bed-rest and then ORIF once skin has healed w/ Dr. Lyman. Afebrile with no wbc count today w/ UA + for leuk esterase. If febrile or elevated WBC, will reculture and start empiric abx. Currently with no PCP, so will refer to resident clinic. #Proximal L tibial and fibular fracture - confirmed on imaging. Now S/p external fixator placement. - External fixator placed 3 days ago. Still with bleeding from surgical site. - Phenergan/zofran IV for N/V - Serial LE neuro checks. - Oxycodone aternating 5mg/10mg PO q4h prn for pain. - DEXA scan as outpt - Calcium/vitamin D levels - SubQ heparin d/c'ed - Post-op management per surgical team - f/u for discharge plan. Pt cannot go home as she lives on 4th floor with no elevator. Tentative plan to go home with son until repeat sgx. - Walked with PT today, non-weight bearing #DM2/hyperglycemia - BG up to 169 this AM - BGM Q4h - Insulin SS - Hgb A1c 9.5. Will require outpt f/u - Referral for PCP on discharge at resident clinic. - No records at pharmacy. Unknown outpt insulin regimen #Fever - No fevers, WBC count. Blood cultures negative. UA + for leuk esterase - blood cultures negative, UA + for L esterase. Monitor for urinary symptoms - CXR w/ no infiltrates - Trend fever, WBC - Daily CBCs #Anemia- Hgb downtrending, 9.0 -> 8.5 today, bleeding still noted at surgical site - SubQ heparin held as Hgb 8.5 - Type and screen sent - Monitor for hypotension - F/u cbc tomorrow. Transfuse at <7 #HTN - Mildly hypotensive overnight. - Hold Lisinopril 10mg PO daiy for now #HLD - - atorvastatin 80mg PO #Systolic murmur - 3/6 systolic ejection murmur, radiating to carotids on exam - Echo - Mild TR. Normal LV function. Mild Pulm HTN, RV pressure 30-40 #Constipation - Senna, colace #PPX SCD on R leg FEN: Fluids: LR 100cc/hr Eletrolytes: Daily BMPs Nutrition: Diabetic diet Dispo: Cleared for discharge per surgical team pending NH placement. If cannot find placement, will go home with son. Plan discussed with attending, Dr. Antoine Gunter, PGY1 Problem List - Problems (1) Hyperglycemia Code(s): R73.9 - HYPERGLYCEMIA, UNSPECIFIED (2) Tibia/fibula fracture Code(s): S82.209A - UNSP FRACTURE OF SHAFT OF UNSP TIBIA, INIT FOR CLOS FX; S82.409A - UNSP FRACTURE OF SHAFT OF UNSP FIBULA, INIT FOR CLOS FX Qualifiers: Encounter type: initial encounter Fracture type: closed Laterality: left Qualified Code(s): S82.202A - Unspecified fracture of shaft of left tibia, initial encounter for closed fracture; S82.402A - Unspecified fracture of shaft of left fibula, initial encounter for closed fracture; S82.402A - Unspecified fracture of shaft of left fibula, initial encounter for closed fracture Visit type - Emergency Visit Emergency Visit: Yes ED Registration Date: 03/17/17 Care time: The patient presented to the Emergency Department on the above date and was hospitalized for further evaluation of their emergent condition. - New Patient This patient is new to me today: No - Critical Care Critical Care patient: No
[2017-03-22 09:17] LABS: BASOPHIL 0.6 % (0-2.0); EOSINOPHIL 6.7 % (0-4.5); MCH 30.5 pg (25.7-33.7); MCHC 34.2 g/dl (32.0-36.0); MEAN CELL VOLUME 89.1 fl (80-96); MEAN PLT VOLUME 8.9 fl (7.5-11.1); NEUTROPHILS 65.4 % (42.8-82.8); PLATELET COUNT 275 K/MM3 (134-434); RDW 12.5 % (11.6-15.6); WHITE BLOOD COUNT 7.7 K/mm3 (4.0-10.0)
[2017-03-22 09:37] LABS: ANION GAP 7 (8-16); CO2 29 mmol/L (21-32); CREATININE 0.5 mg/dL (0.55-1.02); GLUCOSE,RANDOM 169 mg/dL (74-106)
[2017-03-22] MEDS: LISINOPRIL 10 MG TABLET (FP) PO SCH (10:15)
[2017-03-22] MEDS: SENNOSIDES/DOCUSATE COMBO (SENNA PLUS) TABLET (UD) PO SCH ×2 (10:15→23:00)
--- NOTE | 2017-03-22 10:15 | PN ---
Teaching Attending Note Name of Resident: Antonio Gunter ATTENDING PHYSICIAN STATEMENT I saw and evaluated the patient. I reviewed the resident's note and discussed the case with the resident. I agree with the resident's findings and plan as documented. SUBJECTIVE: Patient is better but still unable to move around due to her RLE. no fever or chills, no shortness of breath. OBJECTIVE: Vital Signs Temperature 99.5 F 03/22/17 05:45 Pulse Rate 99 H 03/22/17 05:45 Respiratory Rate 20 03/22/17 05:45 Blood Pressure 118/62 03/22/17 05:45 O2 Sat by Pulse Oximetry (%) 99 03/21/17 21:00 CBCD WBC 7.7 K/mm3 (4.0-10.0) 03/22/17 08:00 RBC 2.80 M/mm3 (3.60-5.2) L 03/22/17 08:00 Hgb 8.5 GM/dL (10.7-15.3) L 03/22/17 08:00 Hct 25.0 % (32.4-45.2) L 03/22/17 08:00 MCV 89.1 fl (80-96) 03/22/17 08:00 MCHC 34.2 g/dl (32.0-36.0) 03/22/17 08:00 RDW 12.5 % (11.6-15.6) 03/22/17 08:00 Plt Count 275 K/MM3 (134-434) 03/22/17 08:00 MPV 8.9 fl (7.5-11.1) 03/22/17 08:00 CMP Sodium 135 mmol/L (136-145) L 03/22/17 08:00 Potassium 4.0 mmol/L (3.5-5.1) 03/22/17 08:00 Chloride 99 mmol/L (98-107) 03/22/17 08:00 Carbon Dioxide 29 mmol/L (21-32) 03/22/17 08:00 Anion Gap 7 (8-16) L 03/22/17 08:00 BUN 8 mg/dL (7-18) D 03/22/17 08:00 Creatinine 0.5 mg/dL (0.55-1.02) L 03/22/17 08:00 Creat Clearance w eGFR > 60 (>60) 03/17/17 04:34 Random Glucose 169 mg/dL (74-106) H D 03/22/17 08:00 Calcium 8.0 mg/dL (8.5-10.1) L 03/22/17 08:00 Total Bilirubin 0.3 mg/dL (0.2-1.0) 03/17/17 04:34 AST 18 U/L (15-37) 03/17/17 04:34 ALT 35 U/L (12-78) 03/17/17 04:34 Alkaline Phosphatase 95 U/L (45-117) 03/17/17 04:34 Total Protein 6.5 g/dl (6.4-8.2) 03/17/17 04:34 Albumin 3.8 g/dl (3.4-5.0) 03/17/17 04:34 Current Medications Generic Name Dose Route Start Last Admin Trade Name Freq PRN Reason Stop Dose Admin Atorvastatin Calcium 80 mg 03/19/17 22:00 03/21/17 23:13 Lipitor - PO 80 mg HS DARCI Administration Heparin Sodium (Porcine) 5,000 unit 03/20/17 14:00 03/22/17 06:08 Heparin - SQ 5,000 unit TID DARCI Administration Lactated Ringer's 1,000 mls @ 100 mls/hr 03/21/17 10:27 03/21/17 17:03 Lactated Ringers Solution IV 100 mls/hr ASDIR DARCI Administration Insulin Aspart 1 vial 03/20/17 07:00 03/22/17 07:03 Novolog Vial Sliding Scale - SQ 4 units TIDAC DARCI Administration Protocol Lisinopril 10 mg 03/20/17 10:00 03/21/17 09:53 Prinivil PO 10 mg DAILY DARCI Administration Ondansetron HCl 4 mg 03/19/17 17:38 Zofran Injection IVPUSH Q6H PRN NAUSEA AND/OR VOMITING Oxycodone HCl 5 mg 03/19/17 18:05 03/22/17 01:12 Roxicodone - PO 5 mg Q4H PRN Administration PAIN Oxycodone HCl 10 mg 03/20/17 09:44 03/21/17 19:54 Roxicodone - PO 10 mg Q4H PRN Administration SEVERE PAIN Promethazine HCl 12.5 mg 03/19/17 17:38 Phenergan Injection - IVPUSH Q6H PRN NAUSEA-FOR RESCUE AFTER 15 MIN Senna/Docusate Sodium 1 tablet 03/19/17 22:00 03/21/17 23:13 Pericolace - PO 1 tablet BID DARCI Administration Home Medications Medication Instructions Recorded Oxycodone HCl/Acetaminophen 1 each PO Q6H #50 tablet MDD 4 03/21/17 [Percocet 10-325 mg Tablet] PE:as per resident's note ASSESSMENT AND PLAN: 61 y/o lady with h/o HTN, DMII, HLP, and orthoscopic sx to L knee in past who presented with pain in L leg after a fall , she was found to have L tibia and fibula Fxs. # Acute Left tibia and fibula Fractures: no neuro vascular compromise of LLE cont. oxycodone, Patient is still unable to move around # DM II: on SSI , on glipizide at home # HTN: cont lisinopril # Fever: monitor off abx. check UA DVT Px: Heparin as per ortho possible placement home in am if able to move around
[2017-03-22] MEDS: LACTATED RINGERS SOLUTION 1,000 ML IV SCH ×2 (11:47→23:44)
--- NOTE | 2017-03-22 14:48 | PN ---
Progress Note (short form) - Note Progress Note: Ortho Pt seen and examined s/p left LE ext fix pod #3 Selected Entries 03/22/17 14:00 Temperature 98.7 F Pulse Rate 92 H Respiratory 20 Rate Blood Pressure 106/71 dressing slightly saturated, ext fix in place nvi a/p dressing changed PT, NWB pain control may d/c from ortho pov f/u in 1-2 weeks
[2017-03-22] MEDS: ATORVASTATIN CA 80 MG TABLET (FP) PO SCH (23:00)
[2017-03-23] MEDS ORDERED: INSULIN (NOVOLOG) ASPART 100 UNITS/ML 10ML VIAL ONE ×2 (06:41→11:24)
[2017-03-23] MEDS: INSULIN SLIDING SCALE (NOVOLOG) 1 VIAL SQ SCH ×3 (06:42→17:04)
[2017-03-23 07:14] LABS: BASOPHIL 0.5 % (0-2.0); EOSINOPHIL 5.5 % (0-4.5); MCH 30.5 pg (25.7-33.7); MCHC 34.5 g/dl (32.0-36.0); MEAN CELL VOLUME 88.4 fl (80-96); MEAN PLT VOLUME 8.1 fl (7.5-11.1); NEUTROPHILS 71.3 % (42.8-82.8); PLATELET COUNT 307 K/MM3 (134-434); RDW 12.3 % (11.6-15.6); WHITE BLOOD COUNT 8.3 K/mm3 (4.0-10.0)
[2017-03-23] MEDS: LACTATED RINGERS SOLUTION 1,000 ML IV SCH (09:27)
[2017-03-23] MEDS: SENNOSIDES/DOCUSATE COMBO (SENNA PLUS) TABLET (UD) PO SCH ×2 (09:28→22:07)
[2017-03-23] MEDS: oxyCODONE HCL 5 MG TABLET PO PRN ×3 (09:30→20:17)
--- NOTE | 2017-03-23 09:47 | PN ---
Physical Exam: SUBJECTIVE: Patient seen and examined Patient is feeling better but still unable to move around. Family at bedside. OBJECTIVE: Vital Signs Temperature 99.1 F 03/23/17 09:25 Pulse Rate 99 H 03/23/17 09:25 Respiratory Rate 18 03/23/17 09:25 Blood Pressure 122/74 03/23/17 09:25 O2 Sat by Pulse Oximetry (%) 97 03/22/17 22:00 GENERAL: The patient is awake, alert, and fully oriented, in no acute distress. HEAD: Normal with no signs of trauma. EYES: PERRL, extraocular movements intact, sclera anicteric, conjunctiva clear. ENT: Ears normal, oropharynx clear without exudates, moist mucous membranes. NECK: Trachea midline, full range of motion, supple. LUNGS: Breath sounds equal, clear to auscultation bilaterally, no wheezes, no crackles, no accessory muscle use. HEART: Regular rate and rhythm, S1, S2 without murmur, rub or gallop. ABDOMEN: Soft, nontender, nondistended, normoactive bowel sounds, no guarding, no rebound, no hepatosplenomegaly, no masses. EXTREMITIES: 2+ pulses, warm, well-perfused, mild edema of LLE. s/p left LE ext fix pod #4 NEUROLOGICAL: Cranial nerves II through XII grossly intact. Normal speech, gait not observed. PSYCH: Normal mood, normal affect. SKIN: Warm, dry, normal turgor, no rashes or lesions noted CBCD WBC 8.3 K/mm3 (4.0-10.0) 03/23/17 06:30 RBC 2.78 M/mm3 (3.60-5.2) L 03/23/17 06:30 Hgb 8.5 GM/dL (10.7-15.3) L 03/23/17 06:30 Hct 24.5 % (32.4-45.2) L 03/23/17 06:30 MCV 88.4 fl (80-96) 03/23/17 06:30 MCHC 34.5 g/dl (32.0-36.0) 03/23/17 06:30 RDW 12.3 % (11.6-15.6) 03/23/17 06:30 Plt Count 307 K/MM3 (134-434) 03/23/17 06:30 MPV 8.1 fl (7.5-11.1) 03/23/17 06:30 CMP Sodium 135 mmol/L (136-145) L 03/22/17 08:00 Potassium 4.0 mmol/L (3.5-5.1) 03/22/17 08:00 Chloride 99 mmol/L (98-107) 03/22/17 08:00 Carbon Dioxide 29 mmol/L (21-32) 03/22/17 08:00 Anion Gap 7 (8-16) L 03/22/17 08:00 BUN 8 mg/dL (7-18) D 03/22/17 08:00 Creatinine 0.5 mg/dL (0.55-1.02) L 03/22/17 08:00 Creat Clearance w eGFR > 60 (>60) 03/17/17 04:34 Random Glucose 169 mg/dL (74-106) H D 03/22/17 08:00 Calcium 8.0 mg/dL (8.5-10.1) L 03/22/17 08:00 Total Bilirubin 0.3 mg/dL (0.2-1.0) 03/17/17 04:34 AST 18 U/L (15-37) 03/17/17 04:34 ALT 35 U/L (12-78) 03/17/17 04:34 Alkaline Phosphatase 95 U/L (45-117) 03/17/17 04:34 Total Protein 6.5 g/dl (6.4-8.2) 03/17/17 04:34 Albumin 3.8 g/dl (3.4-5.0) 03/17/17 04:34 Active Medications Generic Name Dose Route Start Last Admin Trade Name Freq PRN Reason Stop Dose Admin Atorvastatin Calcium 80 mg 03/19/17 22:00 03/22/17 23:00 Lipitor - PO 80 mg HS DARCI Administration Lactated Ringer's 1,000 mls @ 100 mls/hr 03/21/17 10:27 03/23/17 09:27 Lactated Ringers Solution IV 100 mls/hr ASDIR DARCI Administration Insulin Aspart 1 vial 03/20/17 07:00 03/23/17 06:42 Novolog Vial Sliding Scale - SQ 4 units TIDAC DARCI Administration Protocol Lisinopril 10 mg 03/20/17 10:00 03/22/17 10:15 Prinivil PO 10 mg DAILY DARCI Administration Ondansetron HCl 4 mg 03/19/17 17:38 Zofran Injection IVPUSH Q6H PRN NAUSEA AND/OR VOMITING Oxycodone HCl 5 mg 03/19/17 18:05 03/22/17 01:12 Roxicodone - PO 5 mg Q4H PRN Administration PAIN Oxycodone HCl 10 mg 03/20/17 09:44 03/23/17 09:30 Roxicodone - PO 10 mg Q4H PRN Administration SEVERE PAIN Promethazine HCl 12.5 mg 03/19/17 17:38 Phenergan Injection - IVPUSH Q6H PRN NAUSEA-FOR RESCUE AFTER 15 MIN Senna/Docusate Sodium 1 tablet 03/19/17 22:00 03/23/17 09:28 Pericolace - PO 1 tablet BID DARCI Administration Home Medications Medication Instructions Recorded Atorvastatin Ca [Lipitor] 80 mg PO HS #30 tablet 03/22/17 Lisinopril [Prinivil] 10 mg PO DAILY #30 tablet 03/22/17 Sennosides/Docusate Sodium 1 tablet PO BID #60 tablet 03/22/17 [Pericolace -] ASSESSMENT/PLAN: 61 y/o lady with h/o HTN, DMII, HLP, and orthoscopic sx to L knee in past who presented with pain in L leg after a fall , she was found to have L tibia and fibula Fxs. # left LE ext fix pod #4 s/p fall /Fractures of tibia and fibula: no neuro vascular compromise of LLE, cont. oxycodone,waiting for insurance authorization to send the patient to rehab. # DM II: on SSI , on glipizide at home # HTN: cont lisinopril # Fever: monitor off abx.check UA DVT Px: Heparin as per ortho placement to rehab. once approved by insurance. Visit type - Emergency Visit Emergency Visit: Yes ED Registration Date: 03/17/17 Care time: The patient presented to the Emergency Department on the above date and was hospitalized for further evaluation of their emergent condition. - New Patient This patient is new to me today: No - Critical Care Critical Care patient: No
--- NOTE | 2017-03-23 10:08 | PN ---
Progress Note (short form) - Note Progress Note: Ortho Pt seen and examined s/p left LE ext fix pod #4 Selected Entries 03/23/17 09:25 Temperature 99.1 F Pulse Rate 99 H Respiratory 18 Rate Blood Pressure 122/74 Laboratory Tests 03/23/17 06:30 WBC 8.3 Hgb 8.5 L Hct 24.5 L Plt Count 307 dressing c/d/i, ext fix in place nvi a/p PT, NWB pain control may d/c from ortho pov f/u in 1-2 weeks
[2017-03-23] MEDS: ATORVASTATIN CA 80 MG TABLET (FP) PO SCH (22:07)
[2017-03-24] MEDS: INSULIN SLIDING SCALE (NOVOLOG) 1 VIAL SQ SCH ×3 (06:36→17:01)
--- NOTE | 2017-03-24 07:16 | PN ---
Physical Exam: SUBJECTIVE: Patient seen and examined by me this AM - No major overnight events. Afebrile. Still bedbound with limited ambulation. Less bleeding at surgical sites today. Appears a little drowsy today - Denies any fever/chills, gu/dizziness, cough, CP, SOB, n/v, abdominal pain, dysuria, diarrhea, or numbness/weakness in legs. Using bedpan still. - Approved for d/c by Dr. lyman. Awaiting NH placement for rehab. If unavailable , will go home with son. OBJECTIVE: Vital Signs Intake & Output 03/21/17 03/22/17 03/23/17 03/24/17 23:59 23:59 23:59 23:59 Intake Total 2550 3150 3400 Output Total 2100 1100 Balance 450 2050 3400 Period Temp Pulse Resp BP Sys/Marquez Pulse Ox Last 24 Hr 98.5 F-99.2 F 94-100 18-21 108-122/61-74 97-97 GENERAL: Awake, alert, and fully oriented, in no acute distress. Mac[place]- speaking. HEAD: Normal with no signs of trauma. EYES: Pupils equal, round and reactive to light, extraocular movements intact, sclera anicteric, conjunctiva clear. No lid lag. EARS, NOSE, THROAT: Ears normal, nares patent, oropharynx clear without exudates. Moist mucous membranes. LUNGS: CTABL. No wheezes, and no crackles. No accessory muscle use. HEART: Still with 2/6 systolic ejection murmur in RUSB border with radiation to carotids BL, normal S1 and S2 without any other m/c/g/r. No carotid bruit noted. ABDOMEN: Soft, nontender, not distended, normoactive bowel sounds, no guarding, no rebound, no masses. No hepatomegaly. Negative murphys UPPER EXTREMITIES: 2+ pulses, warm, well-perfused. No cyanosis. No clubbing. No edema. BL healed psoriatic rash on forearms. LOWER EXTREMITIES: 1+ pitting edema in L leg and foot. 2+ pulses DP, PT pulses in R foot. Still w/ 1+ DP, 2+ PT in L foot. BL WWP. External fixator in place on L leg, dried blood at inferior surgical site. Trace green/brown exudate noted in mid-costello bandage, likely burst bulla. NEUROLOGICAL: Cranial nerves II-XII intact. Normal speech. Gait not evaluated. 5/5 strength dorsi/plantarflexion BL; 5/5 strength at flexion/extension in R knee/hip. 4/5 strength flexion/extension at L hip, unable to flex at L knee. Preserved sensation to light touch BL. SKIN: psoriatic rash noted on BL extensor surface of forearms, anterior surface of R leg. SCD on R leg Laboratory Results - last 24 hr CBC, BMP 03/23/17 06:30 03/22/17 08:00 03/23/17 03/23/17 03/23/17 06:30 06:50 11:22 WBC 8.3 RBC 2.78 L Hgb 8.5 L Hct 24.5 L MCV 88.4 MCH 30.5 MCHC 34.5 RDW 12.3 Plt Count 307 MPV 8.1 Neutrophils % 71.3 Lymphocytes % 13.8 D Monocytes % 8.9 Eosinophils % 5.5 H Basophils % 0.5 POC Glucometer 193 Blood Type A POSITIVE Antibody Screen Negative 03/23/17 03/24/17 17:04 06:34 WBC RBC Hgb Hct MCV MCH MCHC RDW Plt Count MPV Neutrophils % Lymphocytes % Monocytes % Eosinophils % Basophils % POC Glucometer 169 193 Blood Type Antibody Screen Active Medications Generic Name Dose Route Start Last Admin Trade Name Freq PRN Reason Stop Dose Admin Atorvastatin Calcium 80 mg 03/19/17 22:00 03/23/17 22:07 Lipitor - PO 80 mg HS DARCI Administration Insulin Aspart 1 vial 03/20/17 07:00 03/24/17 06:36 Novolog Vial Sliding Scale - SQ 4 units TIDAC DARCI Administration Protocol Lisinopril 10 mg 03/20/17 10:00 03/22/17 10:15 Prinivil PO 10 mg DAILY DARCI Administration Ondansetron HCl 4 mg 03/19/17 17:38 Zofran Injection IVPUSH Q6H PRN NAUSEA AND/OR VOMITING Oxycodone HCl 5 mg 03/19/17 18:05 03/22/17 01:12 Roxicodone - PO 5 mg Q4H PRN Administration PAIN Oxycodone HCl 10 mg 03/20/17 09:44 03/23/17 20:17 Roxicodone - PO 10 mg Q4H PRN Administration SEVERE PAIN Promethazine HCl 12.5 mg 03/19/17 17:38 Phenergan Injection - IVPUSH Q6H PRN NAUSEA-FOR RESCUE AFTER 15 MIN Senna/Docusate Sodium 1 tablet 03/19/17 22:00 03/23/17 22:07 Pericolace - PO 1 tablet BID DARCI Administration Microbiology 03/21/17 09:50 Blood - Peripheral Venous Blood Culture - Preliminary NO GROWTH OBTAINED AFTER 48 HOURS, INCUBATION TO CONTINUE FOR 3 DAYS. 03/21/17 09:50 Blood - Peripheral Venous Blood Culture - Preliminary NO GROWTH OBTAINED AFTER 48 HOURS, INCUBATION TO CONTINUE FOR 3 DAYS. Imaging: ECHO 03/18 - Mild TR. Normal LV function. Mild Pulm htn, RV pressure 30-40 CXR 03/17 - Impression: Scoliosis. Large heart. Pacemaker. Clear lung bases. Constipation. No sign of free air or organomegaly. Possible left ureteral stone versus ngoc calcification by L4. EKG 03/17 - NSR. Rate in 90s. NAD. Small Q waves in II. TWI in V3-V4. No ST changes. No QTc prolongation CT L leg (my read) 03/17- L comminuted Tibial plateau fx and proximal fibula. Ankle/knee XR 03/17 - Proximal Tibial and fibular fx 03/19 - Fluoro of fixator performed yesterday. Not read. CXR 03/21 - No acute pathology noted. ASSESSMENT/PLAN: 61 yo woman w/ pmh of psoriasis, DM2 (non-insulin dependent), HTN, HLD, who presented to ED after mechanical fall while walking down stairs of her apartment building and striking her knee. Pt found to have proximal comminuted tibial fracture and fibular fx, in addition to elevated BG (339) and leukocytosis (15.2). POD5, pain better controlled, less bleeding from surgical site, afebrile, hemodynamically stable. Cleared for discharge by Dr. Lyman and surgical team, awaiting placement at [place]/insurance clearance for transportation. #Proximal L tibial and fibular fracture - confirmed on imaging. Now S/p external fixator placement. POD5 - External fixator still in place. No new bleeding - Phenergan/zofran IV for N/V - Serial LE neuro checks. - Oxycodone aternating 5mg/10mg PO q4h prn for pain. - DEXA scan as outpt - Calcium/vitamin D levels - SubQ heparin d/c'ed - Post-op management per surgical team - f/u for discharge plan. Awaiting NH placement for rehab. Pt cannot go home as she lives on 4th floor with no elevator. Tentative plan to go home with son until repeat sgx. - Walked with PT yesterday, able to ambulate better yesterday, some mild lightheadness. #DM2/hyperglycemia - BG up to 193 - BGM Q4h - Insulin SS - Hgb A1c 9.5. Will require outpt f/u - Referral for PCP on discharge at resident clinic. - No records at pharmacy. Unknown outpt insulin regimen #Fever - Still no fever, wbc count. Blood cultures negative to date. UA + for leuk esterase - blood cultures negative, UA + for L esterase. Continue to monitor for urinary symptoms - CXR w/ no infiltrates - Trend fever, WBC - Daily CBCs #Anemia- Hgb 8.5-> 8.5 03/23, No further bleeding from surgical site; mild lightheadness with ambulation yesterday - SubQ heparin d/c on 03/22 - Monitor for hypotension - Daily CBC, Transfuse at <7 #HTN - BP 106-122 sys overnight - Hold lisinopril until BP normalizes. #HLD - - atorvastatin 80mg PO #Constipation - Senna, colace #PPX SCD on R leg FEN: Fluids: PO hydration Eletrolytes: No electrolyte abnormalities Nutrition: Diabetic diet Dispo: Cleared for discharge per surgical team pending NH placement. If cannot find placement, will go home with son. Plan discussed with attending, Dr. Antoine Gunter, PGY1 Problem List - Problems (1) Hyperglycemia Code(s): R73.9 - HYPERGLYCEMIA, UNSPECIFIED (2) Tibia/fibula fracture Code(s): S82.209A - UNSP FRACTURE OF SHAFT OF UNSP TIBIA, INIT FOR CLOS FX; S82.409A - UNSP FRACTURE OF SHAFT OF UNSP FIBULA, INIT FOR CLOS FX Qualifiers: Encounter type: initial encounter Fracture type: closed Laterality: left Qualified Code(s): S82.202A - Unspecified fracture of shaft of left tibia, initial encounter for closed fracture; S82.402A - Unspecified fracture of shaft of left fibula, initial encounter for closed fracture; S82.402A - Unspecified fracture of shaft of left fibula, initial encounter for closed fracture Visit type - Emergency Visit Emergency Visit: Yes ED Registration Date: 03/17/17 Care time: The patient presented to the Emergency Department on the above date and was hospitalized for further evaluation of their emergent condition. - New Patient This patient is new to me today: No - Critical Care Critical Care patient: No
[2017-03-24] MEDS: oxyCODONE HCL 5 MG TABLET PO PRN ×3 (08:12→18:26)
[2017-03-24] MEDS: SENNOSIDES/DOCUSATE COMBO (SENNA PLUS) TABLET (UD) PO SCH ×3 (08:13→22:14)
--- NOTE | 2017-03-24 11:48 | PN ---
Teaching Attending Note Name of Resident: Antonio Gunter ATTENDING PHYSICIAN STATEMENT I saw and evaluated the patient. I reviewed the resident's note and discussed the case with the resident. I agree with the resident's findings and plan as documented. SUBJECTIVE: Patient is comfortable with no acute distress. No shortness of breath. Patient has nos fever. OBJECTIVE: Vital Signs Temperature 98.6 F 03/24/17 09:36 Pulse Rate 101 H 03/24/17 09:36 Respiratory Rate 21 03/24/17 09:36 Blood Pressure 117/56 03/24/17 09:36 O2 Sat by Pulse Oximetry (%) 97 03/24/17 08:15 CBCD WBC 8.3 K/mm3 (4.0-10.0) 03/23/17 06:30 RBC 2.78 M/mm3 (3.60-5.2) L 03/23/17 06:30 Hgb 8.5 GM/dL (10.7-15.3) L 03/23/17 06:30 Hct 24.5 % (32.4-45.2) L 03/23/17 06:30 MCV 88.4 fl (80-96) 03/23/17 06:30 MCHC 34.5 g/dl (32.0-36.0) 03/23/17 06:30 RDW 12.3 % (11.6-15.6) 03/23/17 06:30 Plt Count 307 K/MM3 (134-434) 03/23/17 06:30 MPV 8.1 fl (7.5-11.1) 03/23/17 06:30 CMP Sodium 135 mmol/L (136-145) L 03/22/17 08:00 Potassium 4.0 mmol/L (3.5-5.1) 03/22/17 08:00 Chloride 99 mmol/L (98-107) 03/22/17 08:00 Carbon Dioxide 29 mmol/L (21-32) 03/22/17 08:00 Anion Gap 7 (8-16) L 03/22/17 08:00 BUN 8 mg/dL (7-18) D 03/22/17 08:00 Creatinine 0.5 mg/dL (0.55-1.02) L 03/22/17 08:00 Creat Clearance w eGFR > 60 (>60) 03/17/17 04:34 Random Glucose 169 mg/dL (74-106) H D 03/22/17 08:00 Calcium 8.0 mg/dL (8.5-10.1) L 03/22/17 08:00 Total Bilirubin 0.3 mg/dL (0.2-1.0) 03/17/17 04:34 AST 18 U/L (15-37) 03/17/17 04:34 ALT 35 U/L (12-78) 03/17/17 04:34 Alkaline Phosphatase 95 U/L (45-117) 03/17/17 04:34 Total Protein 6.5 g/dl (6.4-8.2) 03/17/17 04:34 Albumin 3.8 g/dl (3.4-5.0) 03/17/17 04:34 Current Medications Generic Name Dose Route Start Last Admin Trade Name Freq PRN Reason Stop Dose Admin Atorvastatin Calcium 80 mg 03/19/17 22:00 03/23/17 22:07 Lipitor - PO 80 mg HS DARCI Administration Insulin Aspart 1 vial 03/20/17 07:00 03/24/17 11:38 Novolog Vial Sliding Scale - SQ 6 units TIDAC DARCI Administration Protocol Lisinopril 10 mg 03/20/17 10:00 03/22/17 10:15 Prinivil PO 10 mg DAILY DARCI Administration Ondansetron HCl 4 mg 03/19/17 17:38 Zofran Injection IVPUSH Q6H PRN NAUSEA AND/OR VOMITING Oxycodone HCl 5 mg 03/19/17 18:05 03/22/17 01:12 Roxicodone - PO 5 mg Q4H PRN Administration PAIN Oxycodone HCl 10 mg 03/20/17 09:44 03/24/17 08:12 Roxicodone - PO 10 mg Q4H PRN Administration SEVERE PAIN Promethazine HCl 12.5 mg 03/19/17 17:38 Phenergan Injection - IVPUSH Q6H PRN NAUSEA-FOR RESCUE AFTER 15 MIN Senna/Docusate Sodium 1 tablet 03/19/17 22:00 03/24/17 09:32 Pericolace - PO Not Given BID [facility] Home Medications Medication Instructions Recorded Atorvastatin Ca [Lipitor] 80 mg PO HS #30 tablet 03/22/17 Lisinopril [Prinivil] 10 mg PO DAILY #30 tablet 03/22/17 Sennosides/Docusate Sodium 1 tablet PO BID #60 tablet 03/22/17 [Pericolace -] PE: per resident's note Heart: mild tachycardia rate of 101. ASSESSMENT AND PLAN: Patient is a 61 y/o lady with h/o HTN, DMII, HLP, and arthoscopic knee sx to L knee, was brought in by daughters complaining off and leg pain s/p fall. States that patient was walking down 4 steps tripped and fell hitting the left knee. # POD#5 for Acute left LE external fixator s/p fall /Fractures of tibia and fibula: as per neuro vascular compromise of LLE, cont. oxycodone,waiting for insurance authorization to send the patient to rehab. # Mild tachycardia will hydrate her IVF NC at 100cc/hr and will recheck. # DM II: on SSI , on glipizide at home # HTN: cont lisinopril DVT Px: Heparin as per ortho placement to rehab. once approved by insurance.
[2017-03-24] MEDS: SODIUM CHLORIDE 1,000 ML IV SCH (13:51)
[2017-03-24] MEDS: ATORVASTATIN CA 80 MG TABLET (FP) PO SCH (22:14)
[2017-03-25] MEDS: SODIUM CHLORIDE 1,000 ML IV SCH ×2 (00:03→10:06)
[2017-03-25] MEDS: oxyCODONE HCL 5 MG TABLET PO PRN ×3 (00:05→10:32)
[2017-03-25] MEDS: INSULIN SLIDING SCALE (NOVOLOG) 1 VIAL SQ SCH ×2 (06:42→11:49)
[2017-03-25] MEDS ORDERED: INSULIN (NOVOLOG) ASPART 100 UNITS/ML 10ML VIAL ONE ×2 (06:46→11:48)
--- NOTE | 2017-03-25 08:37 | PN ---
Progress Note (short form) - Note Progress Note: Ortho Pt seen and examined s/p left LE ext fix Selected Entries 03/25/17 06:00 Temperature 99.4 F Pulse Rate 98 H Respiratory 16 Rate Blood Pressure 119/61 Laboratory Tests 03/23/17 06:30 WBC 8.3 Hgb 8.5 L Hct 24.5 L Plt Count 307 dressing c/d/i, ext fix in place nvi a/p PT, NWB pain control may d/c from ortho pov f/u in 1-2 weeks
--- NOTE | 2017-03-25 09:09 | PN ---
Teaching Attending Note Name of Resident: Antonio Gunter ATTENDING PHYSICIAN STATEMENT I saw and evaluated the patient. I reviewed the resident's note and discussed the case with the resident. I agree with the resident's findings and plan as documented. SUBJECTIVE: Patient is comfortable with no acute distress, no shortness of breath. OBJECTIVE: Vital Signs Temperature 99.4 F 03/25/17 06:00 Pulse Rate 98 H 03/25/17 06:00 Respiratory Rate 16 03/25/17 06:00 Blood Pressure 119/61 03/25/17 06:00 O2 Sat by Pulse Oximetry (%) 97 03/24/17 08:15 CBCD WBC 8.3 K/mm3 (4.0-10.0) 03/23/17 06:30 RBC 2.78 M/mm3 (3.60-5.2) L 03/23/17 06:30 Hgb 8.5 GM/dL (10.7-15.3) L 03/23/17 06:30 Hct 24.5 % (32.4-45.2) L 03/23/17 06:30 MCV 88.4 fl (80-96) 03/23/17 06:30 MCHC 34.5 g/dl (32.0-36.0) 03/23/17 06:30 RDW 12.3 % (11.6-15.6) 03/23/17 06:30 Plt Count 307 K/MM3 (134-434) 03/23/17 06:30 MPV 8.1 fl (7.5-11.1) 03/23/17 06:30 CMP Sodium 135 mmol/L (136-145) L 03/22/17 08:00 Potassium 4.0 mmol/L (3.5-5.1) 03/22/17 08:00 Chloride 99 mmol/L (98-107) 03/22/17 08:00 Carbon Dioxide 29 mmol/L (21-32) 03/22/17 08:00 Anion Gap 7 (8-16) L 03/22/17 08:00 BUN 8 mg/dL (7-18) D 03/22/17 08:00 Creatinine 0.5 mg/dL (0.55-1.02) L 03/22/17 08:00 Creat Clearance w eGFR > 60 (>60) 03/17/17 04:34 Random Glucose 169 mg/dL (74-106) H D 03/22/17 08:00 Calcium 8.0 mg/dL (8.5-10.1) L 03/22/17 08:00 Total Bilirubin 0.3 mg/dL (0.2-1.0) 03/17/17 04:34 AST 18 U/L (15-37) 03/17/17 04:34 ALT 35 U/L (12-78) 03/17/17 04:34 Alkaline Phosphatase 95 U/L (45-117) 03/17/17 04:34 Total Protein 6.5 g/dl (6.4-8.2) 03/17/17 04:34 Albumin 3.8 g/dl (3.4-5.0) 03/17/17 04:34 Active Medications Generic Name Dose Route Start Last Admin Trade Name Freq PRN Reason Stop Dose Admin Atorvastatin Calcium 80 mg 03/19/17 22:00 03/24/17 22:14 Lipitor - PO 80 mg HS DARCI Administration Sodium Chloride 1,000 mls @ 100 mls/hr 03/24/17 12:00 03/25/17 00:03 Normal Saline - IV 100 mls/hr ASDIR DARCI Administration Insulin Aspart 1 vial 03/20/17 07:00 03/25/17 06:42 Novolog Vial Sliding Scale - SQ 4 units TIDAC DARCI Administration Protocol Lisinopril 10 mg 03/20/17 10:00 03/22/17 10:15 Prinivil PO 10 mg DAILY DARCI Administration Ondansetron HCl 4 mg 03/19/17 17:38 Zofran Injection IVPUSH Q6H PRN NAUSEA AND/OR VOMITING Oxycodone HCl 5 mg 03/19/17 18:05 03/22/17 01:12 Roxicodone - PO 5 mg Q4H PRN Administration PAIN Oxycodone HCl 10 mg 03/20/17 09:44 03/25/17 06:42 Roxicodone - PO 10 mg Q4H PRN Administration SEVERE PAIN Promethazine HCl 12.5 mg 03/19/17 17:38 Phenergan Injection - IVPUSH Q6H PRN NAUSEA-FOR RESCUE AFTER 15 MIN Senna/Docusate Sodium 1 tablet 03/19/17 22:00 03/24/17 22:14 Pericolace - PO 1 tablet BID DARCI Administration PE: per resident's note Heart: RRR, S1S2 positive ASSESSMENT AND PLAN: Patient is a 61 y/o lady with h/o HTN, DMII, HLP, and arthoscopic knee sx to L knee, was brought in by daughters complaining off and leg pain s/p fall. States that patient was walking down 4 steps tripped and fell hitting the left knee. # POD#6 for Acute left LE external fixator s/p fall /Fractures of tibia and fibula: as per neuro vascular compromise of LLE, being discharged to rehab today. follow up with ortho in a week period for surgery. # DM II: on SSI , on glipizide at home # HTN: cont lisinopril DVT Px: Heparin as per ortho
[2017-03-25] MEDS: LISINOPRIL 10 MG TABLET (FP) PO SCH (09:20)
[2017-03-25] MEDS: SENNOSIDES/DOCUSATE COMBO (SENNA PLUS) TABLET (UD) PO SCH (09:20)
[2017-03-25 09:31] VITALS: PULSE 90
--- NOTE | 2017-03-25 10:48 | PN ---
Physical Exam: SUBJECTIVE: Patient seen and examined by me this AM - No overnight events. Pt still bedbound, limited ambulation w/ PT due to pain, lightheadness. BP stable in 110s overnight. Afebrile. Denies any fever/chills, sob, cp, MARTINEZ, N/V, abdominal pain, increased swelling or new weakness numbness in legs. Still unable to ambulate to bathroom, voiding/stooling in bed. - Plan for discharge to NH/rehab facility today, as patient cleared by orthopedic team for outpt f/u in one week. OBJECTIVE: Vital Signs Period Temp Pulse Resp BP Sys/Marquez Pulse Ox Last 24 Hr 97.9 F-99.4 F 90-98 16-20 113-119/50-64 GENERAL: Awake, alert, and fully oriented, in no acute distress. Grenadian- speaking. HEAD: Normal with no signs of trauma. EYES: Pupils equal, round and reactive to light, extraocular movements intact, sclera anicteric, conjunctiva clear. No lid lag. EARS, NOSE, THROAT: Ears normal, nares patent, oropharynx clear without exudates. Moist mucous membranes. LUNGS: CTABL. No wheezes and no crackles. No accessory muscle use. HEART: 2/6 systolic ejection murmur in RUSB border with radiation to carotids BL , normal S1 and S2 without any other m/c/g/r. No carotid bruit noted. ABDOMEN: Soft, nontender, not distended, normoactive bowel sounds, no guarding, no rebound, no masses. No hepatomegaly. Negative murphys UPPER EXTREMITIES: 2+ pulses, warm, well-perfused. No cyanosis. No clubbing. No edema. BL healed psoriatic rash on forearms. LOWER EXTREMITIES: Trace pitting edema in L leg and foot. 2+ pulses DP, PT pulses in R foot. 2+ DP, 2+ PT in L foot. BL WWP. External fixator in place on L leg, dressings c/d/i NEUROLOGICAL: Cranial nerves II-XII intact. Normal speech. Gait not evaluated. No change in neuro exam 5/5 strength dorsi/plantarflexion BL; 5/5 strength at flexion/extension in R knee/hip. 4/5 strength flexion/extension at L hip, unable to flex at L knee. Preserved sensation to light touch BL. SKIN: psoriatic rash noted on BL extensor surface of forearms, anterior surface of R leg. SCD on R leg Laboratory Results - last 24 hr CBC, BMP 03/23/17 06:30 03/22/17 08:00 03/24/17 03/24/17 03/25/17 11:37 16:58 06:26 POC Glucometer 210 130 188 Active Medications Generic Name Dose Route Start Last Admin Trade Name Freq PRN Reason Stop Dose Admin Atorvastatin Calcium 80 mg 03/19/17 22:00 03/24/17 22:14 Lipitor - PO 80 mg HS DARCI Administration Sodium Chloride 1,000 mls @ 100 mls/hr 03/24/17 12:00 03/25/17 10:06 Normal Saline - IV 100 mls/hr ASDIR DARCI Administration Insulin Aspart 1 vial 03/20/17 07:00 03/25/17 06:42 Novolog Vial Sliding Scale - SQ 4 units TIDAC DARCI Administration Protocol Lisinopril 10 mg 03/20/17 10:00 03/25/17 09:20 Prinivil PO 10 mg DAILY DARCI Administration Ondansetron HCl 4 mg 03/19/17 17:38 Zofran Injection IVPUSH Q6H PRN NAUSEA AND/OR VOMITING Oxycodone HCl 5 mg 03/19/17 18:05 03/22/17 01:12 Roxicodone - PO 5 mg Q4H PRN Administration PAIN Oxycodone HCl 10 mg 03/20/17 09:44 03/25/17 06:42 Roxicodone - PO 10 mg Q4H PRN Administration SEVERE PAIN Promethazine HCl 12.5 mg 03/19/17 17:38 Phenergan Injection - IVPUSH Q6H PRN NAUSEA-FOR RESCUE AFTER 15 MIN Senna/Docusate Sodium 1 tablet 03/19/17 22:00 03/25/17 09:20 Pericolace - PO 1 tablet BID DARCI Administration Microbiology 03/21/17 09:50 Blood - Peripheral Venous Blood Culture - Preliminary NO GROWTH OBTAINED AFTER 96 HOURS, INCUBATION TO CONTINUE FOR 1 DAYS. 03/21/17 09:50 Blood - Peripheral Venous Blood Culture - Preliminary NO GROWTH OBTAINED AFTER 96 HOURS, INCUBATION TO CONTINUE FOR 1 DAYS. Imaging: ECHO 03/18 - Mild TR. Normal LV function. Mild Pulm htn, RV pressure 30-40 CXR 03/17 - Impression: Scoliosis. Large heart. Pacemaker. Clear lung bases. Constipation. No sign of free air or organomegaly. Possible left ureteral stone versus ngoc calcification by L4. EKG 03/17 - NSR. Rate in 90s. NAD. Small Q waves in II. TWI in V3-V4. No ST changes. No QTc prolongation CT L leg (my read) 03/17- L comminuted Tibial plateau fx and proximal fibula. Ankle/knee XR 03/17 - Proximal Tibial and fibular fx 03/19 - Fluoro of fixator performed yesterday. Not read. CXR 03/21 - No acute pathology noted. ASSESSMENT/PLAN: 61 yo woman w/ pmh of psoriasis, DM2 (non-insulin dependent), HTN, HLD, who presented to ED after mechanical fall while walking down stairs of her apartment building and striking her knee. Pt found to have proximal comminuted tibial fracture and fibular fx, in addition to elevated BG (339) and leukocytosis (15.2). POD6, pain well controlled, no complaints, hemodynamically stable. Remains cleared for discharge by Dr. Lyman and surgical team, will likely go today pending placement/transportation coordination by for NH/ .rehab. #Proximal L tibial and fibular fracture - confirmed on imaging. Now S/p external fixator placement. POD5 - External fixator still in place. Dressing c/d/i - Phenergan/zofran IV for N/V - Serial LE neuro checks. - Oxycodone aternating 5mg/10mg PO q4h prn for pain. - DEXA scan as outpt - Calcium/vitamin D levels - SubQ heparin d/c'ed - Post-op management per surgical team - Will likely go today for rehab. Cleared by surgical team. - Limited ambulation out of bed, but requiring minimal assistance. Mild dizziness on ambulation. #DM2/hyperglycemia - BG 188 this AM. Good appetite, eating well - BGM Q4h - Insulin SS - Hgb A1c 9.5. Will require outpt f/u - Referral for PCP on discharge at resident clinic. - No records at pharmacy. Unknown outpt insulin regimen #Fever - afebrile overnight. Blood cultures negative to date. UA + for leuk esterase. CXR clear - blood cultures negative, UA + for L esterase. Continue to monitor for urinary symptoms - Likely no infectious process - Trend fever, WBC - Daily CBCs #Anemia- Hgb 8.5 03/23, No further bleeding from surgical site; - Pt ambulate OOB w/ assistance - SubQ heparin d/c'ed on 03/22 - Monitor for hypotension - Daily CBC, Transfuse at <7 #HTN - BP 106-122 sys overnight - Hold lisinopril again today #HLD - - atorvastatin 80mg PO #Constipation - pericolace #PPX SCD on R leg FEN: Fluids: PO hydration Eletrolytes: No electrolyte abnormalities Nutrition: Diabetic diet Dispo: Cleared for discharge per surgical team. Will likely go today pending transportation to [place]. Plan discussed with attending, Dr. Antoine Gunter, PGY1 Problem List - Problems (1) Hyperglycemia Code(s): R73.9 - HYPERGLYCEMIA, UNSPECIFIED (2) Tibia/fibula fracture Code(s): S82.209A - UNSP FRACTURE OF SHAFT OF UNSP TIBIA, INIT FOR CLOS FX; S82.409A - UNSP FRACTURE OF SHAFT OF UNSP FIBULA, INIT FOR CLOS FX Qualifiers: Encounter type: initial encounter Fracture type: closed Laterality: left Qualified Code(s): S82.202A - Unspecified fracture of shaft of left tibia, initial encounter for closed fracture; S82.402A - Unspecified fracture of shaft of left fibula, initial encounter for closed fracture; S82.402A - Unspecified fracture of shaft of left fibula, initial encounter for closed fracture Visit type - Emergency Visit Emergency Visit: Yes ED Registration Date: 03/17/17 Care time: The patient presented to the Emergency Department on the above date and was hospitalized for further evaluation of their emergent condition. - New Patient This patient is new to me today: No - Critical Care Critical Care patient: No
[2017-03-25 14:55] VITALS: BP 132/57; TEMP 99
--- NOTE | 2017-03-25 18:10 | DS ---
Physical Exam: SUBJECTIVE: Patient seen and examined by me this AM - No overnight events. Pt still bedbound, limited ambulation w/ PT due to pain, lightheadness. BP stable in 110s overnight. Afebrile. Denies any fever/chills, sob, cp, MARTINEZ, N/V, abdominal pain, increased swelling or new weakness numbness in legs. Still unable to ambulate to bathroom, voiding/stooling in bed. - Plan for discharge to NH/rehab facility today, as patient cleared by orthopedic team for outpt f/u in one week. OBJECTIVE: Vital Signs Intake & Output 03/22/17 03/23/17 03/24/17 03/25/17 23:59 23:59 23:59 23:59 Intake Total 3150 3400 1650 1850 Output Total 1100 Balance 2049 3400 1650 1850 Period Temp Pulse Resp BP Sys/Marquez Pulse Ox Last 24 Hr 97.9 F-99.4 F 90-98 16-20 113-132/57-64 PHYSICAL EXAM GENERAL: Awake, alert, and fully oriented, in no acute distress. Luxembourgish- speaking. HEAD: Normal with no signs of trauma. EYES: Pupils equal, round and reactive to light, extraocular movements intact, sclera anicteric, conjunctiva clear. No lid lag. EARS, NOSE, THROAT: Ears normal, nares patent, oropharynx clear without exudates. Moist mucous membranes. LUNGS: CTABL. No wheezes and no crackles. No accessory muscle use. HEART: 2/6 systolic ejection murmur in RUSB border with radiation to carotids BL , normal S1 and S2 without any other m/c/g/r. No carotid bruit noted. ABDOMEN: Soft, nontender, not distended, normoactive bowel sounds, no guarding, no rebound, no masses. No hepatomegaly. Negative murphys UPPER EXTREMITIES: 2+ pulses, warm, well-perfused. No cyanosis. No clubbing. No edema. BL healed psoriatic rash on forearms. LOWER EXTREMITIES: Trace pitting edema in L leg and foot. 2+ pulses DP, PT pulses in R foot. 2+ DP, 2+ PT in L foot. BL WWP. External fixator in place on L leg, dressings c/d/i NEUROLOGICAL: Cranial nerves II-XII intact. Normal speech. Gait not evaluated. No change in neuro exam 5/5 strength dorsi/plantarflexion BL; 5/5 strength at flexion/extension in R knee/hip. 4/5 strength flexion/extension at L hip, unable to flex at L knee. Preserved sensation to light touch BL. SKIN: psoriatic rash noted on BL extensor surface of forearms, anterior surface of R leg. SCD on R leg LABS Laboratory Results - last 24 hr CBC, BMP 03/23/17 06:30 03/22/17 08:00 03/25/17 03/25/17 06:26 11:46 POC Glucometer 188 178 Microbiology 03/21/17 09:50 Blood - Peripheral Venous Blood Culture - Preliminary NO GROWTH OBTAINED AFTER 96 HOURS, INCUBATION TO CONTINUE FOR 1 DAYS. 03/21/17 09:50 Blood - Peripheral Venous Blood Culture - Preliminary NO GROWTH OBTAINED AFTER 96 HOURS, INCUBATION TO CONTINUE FOR 1 DAYS. Imaging: ECHO 03/18 - Mild TR. Normal LV function. Mild Pulm htn, RV pressure 30-40 EKG 03/17 - NSR. Rate in 90s. NAD. Small Q waves in II. TWI in V3-V4. No ST changes. No QTc prolongation CT L leg (my read) 03/17- L comminuted Tibial plateau fx and proximal fibula. Ankle/knee XR 03/17 - Proximal Tibial and fibular fx 03/19 - Fluoro of fixator performed yesterday. Not read. CXR 03/21 - No acute pathology noted. HOSPITAL COURSE: Date of Admission:03/17/17 Date of Discharge: 03/25/17 61 yo woman w/ pmh of psoriasis, DM2 (non-insulin dependent), HTN, HLD, who presented to ED after mechanical fall while walking down stairs of her apartment building and striking her knee. Pt denied any dizziness, lightheadness , LOC or headstrike and has a stable gait at baseline. Pt found to have proximal comminuted tibial fracture and fibular fx on CT scan on 03/17, in addition to elevated BG (339) and leukocytosis (15.2) on presentation. Pt was placed in inflatable cast and orthopedics team was consulted, pt was seen non- emergently on 03/18, w/ decision made for external fixator placement surgically on 03/19. Pre-op course was notable for prominent bullous dz on pressure surfaces of L leg, presumably allergic reaction to cast material. Pt was medically cleared for surgery and external fixator was placed on 03/19. Post-op course was notable for prolonged bleeding from surgical sites and downtrending Hgb to 8.5, as well as intermittent noctural low-grade fevers, mild tachycardia w/ no leukocytosis. All post-op cultures negative. Likely a combination of atelectasis/post-surgical pain. Pt with no vascular/neurologic symptoms in L leg post-operatively. Significant ambulatory restrictions due to pain and inability for weight bearing. Post-operative heparin held on 03/22 due to prolonged bleeding, downtrending Hgb and mild hypotension. Pt hemodynamically stable for next few days, w/ no further fevers. Was discharge to rehab facility for one week of physical therapy w/ immediate f/u with Dr. Lyman and surgical team for further revision of external fixator and determination of need for ORIF. Pt transferred on 03/25. Consults: Orthopedics - Dr. Lyman Plan per Ortho Team: PT, NWB pain control may d/c from ortho pov f/u in 1-2 weeks Pt is medically stable and cleared for discharge to [place] for one week of rehab and physical therapy. She will follow-up with Dr. Lyman on discharge from her rehab facility for further management of her fracture and has been referred to follow-up with Dr. Smith in the resident clinic. Minutes to complete discharge: 35 Discharge Summary Reason For Visit: HYPERGLYCEMIA, FRACTURE OF TIBIA AND FIBU Condition: Stable - Instructions Diet, Activity, Other Instructions: You were treated at [facility] for tibial/fibular fracture. You have an external fixator placed for this fracture by Dr. Lyman, which will require repeat surgery and removal of the external fixator. The following medications were added to your home medications. Please take them as directed: Lisinopril 10mg by mouth once a day Atorvastatin 80mg by mouth once a day Pericolace 1 tablet twice a day as needed (constipation) Oxycodone 5mg every six hours for pain control as needed. Please continue your home medications as before. Activity: DO NOT PUT ANY WEIGHT ON YOUR LEFT LEG. Wound care: Keep your leg elevated. Keep the dressing clean and dry at all times. Do not remove or change your dressings on your own. Do you touch or manipulate any surgical incision sites along your leg. All follow-up wound care will be coordinated by Dr. Lyman during your next office visit in one week. Diet: Eat a low salt, low sugar diet. Follow-up: Primary care physician: - During your stay, your blood A1C levels, a marker of blood sugar control, were markedly elevated (9.5), indicating poor blood sugar management. Please maintain a low sugar diet and bring this to the attention of your primary care provider. As you previously stated you have no primary care provider, contact information for Dr. Smith's office has been provided for you. Please call to make an appointment within one week Surgery: - Contact information for Dr. Lyman, the orthopedic surgeon has been provided for you. Please call the office to make an appointment in 1 week for further evaluation of your fracture and revision of your external fixation device. If you develop worsening leg pain with bleeding, swelling, fevers, develop chest pain, trouble breathing or any new symptoms, return to the hospital. You are being discharged to a long term for rehabilitation and physical therapy for one week. Referrals: Jose Smith MD [Staff Physician] - 1 Week Everett Lyman MD [Staff Physician] - 1 Week Disposition: [facility]ISON [facility] - Home Medications Comprehensive Discharge Medication List: Ambulatory Orders Atorvastatin Ca [Lipitor] 80 mg PO HS #30 tablet 03/22/17 Lisinopril [Prinivil] 10 mg PO DAILY #30 tablet 03/22/17 Sennosides/Docusate Sodium [Pericolace -] 1 tablet PO BID #60 tablet 03/22/17 Oxycodone HCl [Roxicodone -] 5 mg PO Q6H PRN #30 tablet MDD 15 03/25/17 Problem List - Problems (1) Hyperglycemia Code(s): R73.9 - HYPERGLYCEMIA, UNSPECIFIED (2) Tibia/fibula fracture Code(s): S82.209A - UNSP FRACTURE OF SHAFT OF UNSP TIBIA, INIT FOR CLOS FX; S82.409A - UNSP FRACTURE OF SHAFT OF UNSP FIBULA, INIT FOR CLOS FX Qualifiers: Encounter type: initial encounter Fracture type: closed Laterality: left Qualified Code(s): S82.202A - Unspecified fracture of shaft of left tibia, initial encounter for closed fracture; S82.402A - Unspecified fracture of shaft of left fibula, initial encounter for closed fracture; S82.402A - Unspecified fracture of shaft of left fibula, initial encounter for closed fracture This patient is new to me today: No Emergency Visit: No Critical Care patient: No - Discharge Referral Referred to [facility] No
== END 2017-03-25 16:00 | DRG 313 ==
LOC: JER 01:31 → JERBED 05:49 → J6S 08:17
PROVIDERS: ADMIT Internal Medicine; ATTEND Internal Medicine
PROC: 0QS Lower Bones, Reposition (ICD-10-PCS; principal; 2017-03-19 14:00)
PROC: 0HBLXZZ Excision of Left Lower Leg Skin, External Approach (ICD-10-PCS; 2017-03-19 14:00)
DX: S82.252A Displaced comminuted fracture of shaft of left tibia, initial encounter for closed fracture (principal); W19.XXXA Unspecified fall, initial encounter; Y93.9 Activity, unspecified; Y92.89 Other specified places as the place of occurrence of the external cause; Y99.9 Unspecified external cause status; E78.5 Hyperlipidemia, unspecified; D72.829 Elevated white blood cell count, unspecified; E11.65 Type 2 diabetes mellitus with hyperglycemia; D64.9 Anemia, unspecified; I10 Essential (primary) hypertension; K59.00 Constipation, unspecified; R00.0 Tachycardia, unspecified; R50.9 Fever, unspecified; R01.1 Cardiac murmur, unspecified; E83.42 Hypomagnesemia; E83.39 Other disorders of phosphorus metabolism; S82.452A Displaced comminuted fracture of shaft of left fibula, initial encounter for closed fracture
CPT/HCPCS: 36415; 71010-TC; 73560-TC-LT; 73590-TC-LT; 73610-TC-LT; 73700-TC-RT; 76000-TC; 80048; 80053; 81003; 81015; 83036; 83735; 84100; 85025; 85027; 85610; 85730; 86850; 86900; 86901; 87040; 93005; 93010; 93306-TC; 94010; 94760; 97116-GP; 97162-GP; 99283-25; J1644

== ENCOUNTER 2017-03-25 17:25 | Emergency (ER) | payer OTHER ==
[2017-03-25 17:53] VITALS: BP 118/64; PULSE 90; TEMP 99.3; BMI 22.4
--- NOTE | 2017-03-25 19:05 | PDOC ---
History of Present Illness - General Chief Complaint: Psychiatric Stated Complaint: ANXIETY ATTACK Time Seen by Provider: 03/25/17 19:03 - History of Present Illness Initial Comments: 03/25/17 19:07 61 yo F with h/o HTN, HLD, DM, and day 1 s/p left tibial plateau fracture fixation who presents with anxiety. States that she was recently discharged from [facility] and sent to [facility] for rehabilitation today. When she arrived to facility she states that she became anxious, diaphoretic, SOB, and tachycardia. Attributes her symptoms to hygiene of building, and poor medical care received at [facility]. States that she was at [facility] for less than 4 hours. Currently, denies N/V, fevers/chills, CP, SOB, lightheadedness, bowel/abdominal complaints, diarrhea, constipation, urinary complaints, dysuria, or other complaints. Endorses pain of LLE, PCP Dr. Jolly Oneil. Dr. Lyman Orthopedic surgeon. Left communted tibial plateau frx.and proximal fibula. Past History - Past Medical History Allergies/Adverse Reactions: Allergies Allergy/AdvReac Type Severity Reaction Status Date / Time No Known Allergies Allergy Verified 03/17/17 02:10 Home Medications: Ambulatory Orders Atorvastatin Ca [Lipitor] 80 mg PO HS #30 tablet 03/22/17 Lisinopril [Prinivil] 10 mg PO DAILY #30 tablet 03/22/17 Sennosides/Docusate Sodium [Pericolace -] 1 tablet PO BID #60 tablet 03/22/17 Oxycodone HCl [Roxicodone -] 5 mg PO Q6H PRN #30 tablet MDD 15 03/25/17 COPD: No DVT: No HTN: Yes Hypercholesterolemia: Yes - Immunization History Immunization Up to Date: Yes - Suicide/Smoking/Psychosocial Hx Smoking History: Never smoked Have you smoked in the past 12 months: No Information on smoking cessation initiated: No Hx Alcohol Use: No Drug/Substance Use Hx: No Substance Use Type: None Review of Systems - Review of Systems Comments:: 03/25/17 19:05 GENERAL/CONSTITUTIONAL: No fever or chills. No weakness. HEAD, EYES, EARS, NOSE AND THROAT: No change in vision. No ear pain or discharge. No sore throat.- CARDIOVASCULAR: No chest pain or shortness of breath RESPIRATORY: No cough, wheezing, or hemoptysis. GASTROINTESTINAL: No nausea, vomiting, diarrhea or constipation. GENITOURINARY: No dysuria, frequency, or change in urination. MUSCULOSKELETAL: Left leg pain. No joint or muscle swelling or pain. No neck or back pain. SKIN: No rash NEUROLOGIC: No headache, vertigo, loss of consciousness, or change in strength/ sensation. ENDOCRINE: No increased thirst. No abnormal weight change HEMATOLOGIC/LYMPHATIC: No anemia, easy bleeding, or history of blood clots. ALLERGIC/IMMUNOLOGIC: No hives or skin allergy. *Physical Exam - Vital Signs Last Vital Signs Temp Pulse Resp BP Pulse Ox 99.3 F 90 18 118/64 98 03/25/17 17:47 03/25/17 17:47 03/25/17 17:47 03/25/17 17:47 03/25/17 17:47 - Physical Exam Comments: 03/25/17 19:05 GENERAL: Awake, alert, and fully oriented, in no acute distress HEAD: No signs of trauma, normocephalic, atraumatic EYES: PERRLA, EOMI, sclera anicteric, conjunctiva clear ENT:Hearing grossly normal, nares patent, oropharynx clear without exudates. Moist mucosa NECK: Normal ROM, supple, no lymphadenopathy, JVD, or masses LUNGS: No distress, speaks full sentences, clear to auscultation bilaterally HEART: Regular rate and rhythm, normal S1 and S2, no murmurs, rubs or gallops, peripheral pulses normal and equal bilaterally. ABDOMEN: Soft, nontender, normoactive bowel sounds. No guarding, no rebound. No masses EXTREMITIES : LLE fixation device applied and leg appropriately dressed. Normal inspection, Normal range of motion, no edema. No clubbing or cyanosis. SKIN: Warm, Dry, normal turgor, no rashes or lesions noted. Medical Decision Making - Medical Decision Making 03/25/17 21:13 61 yo F with h/o HTN, HLD, DM, and day 1 s/p left tibial plateau fracture fixation who presents with SOB. Patient reports that she was recently discharged from [facility] and sent to [facility] for rehabilitation today. When she arrived to facility she states that she became anxious, diaphoretic, SOB, and tachycardia. Attributes her symptoms to hygiene of building, and poor medical care received at [facility]. States that she was at [facility] for less than 4 hours. Currently, denies N/V, fevers/chills, CP, SOB, lightheadedness, bowel/abdominal complaints, diarrhea, constipation, urinary complaints, dysuria, or other complaints. Endorses pain of LLE.LLE fixation device applied and leg appropriately dressed. Hemodynamically stable. Patient requests discharge home. Will call ortho and determine whether patient required to stay in rehabilitation. ED Course: Spoke to Dr. Casiano covering for Dr. Lyman and he states that patient is ok to go home if she desires. She needs to follow up with ortho in 8 days for fixation removal. Patient is stable for d/c and discussed return precautions. *DC/Admit/Observation/Transfer Diagnosis at time of Disposition: Tibia/fibula fracture - Discharge Dispostion Disposition: HOME Condition at time of disposition: Stable Admit: No - Referrals Referrals: Jolly Oneil MD [Primary Care Provider] - - Patient Instructions Printed Discharge Instructions: DI for Tibial Plateau Fracture Additional Instructions: Please return to the emergency department with any new or worsening symptoms or concerns. Please follow up with orthopedic surgery for procedure next week. - Post Discharge Activity - Attestations Physician Attestion: 03/25/17 22:16 I attest to the information provided in this note.
[2017-03-25] MEDS ORDERED: ACETAMINOPHEN 500 MG TABLET (FP) PO ONE (21:47)
[2017-03-25] MEDS ORDERED: NAPROXEN 500 MG TABLET (FP) PO ONE (22:14)
[2017-03-25] MEDS ORDERED: NAPROXEN 500 MG TABLET (FP) ONE (22:34)
[2017-03-25] MEDS ORDERED: ACETAMINOPHEN 325 MG TABLET (FP) ONE (22:34)
--- NOTE | 2017-03-25 22:47 | PDOC ---
Attending Attestation - Resident Resident Name: Tarun Bueno - ED Attending Attestation I have performed the following: I have examined & evaluated the patient, The case was reviewed & discussed with the resident, I agree w/resident's findings & plan, Exceptions are as noted - HPI HPI: 03/25/17 22:41 this 61 yo female s/p knee fracture and had orthopedic surgery w external fixation [facility] and the pt is very upset w the physical conditions there. Feeling it was very loud,not clean . she became upset and had palpitations started to get very anxious - Physicial Exam PE: 03/25/17 22:47 61 yo female p/w external fixation on left leg head ncat neck supple lungs cta b/l cvs [id number] abd nontender left leg - has external hardware, no cellulitis skin warm,dry, no vescicles,no rashes neuro axox3 - Medical Decision Making 03/25/17 22:50 Dr Bueno spoke w Dr Casiano who did not feel there was any ortho reason for prison pt wants to go home,she does not want to be in the prison -pt to see orthopedist in 1 week for removal of hardware
--- NOTE | 2017-03-26 14:36 | EKG ---
Test Reason : Blood Pressure : / mmHG Vent. Rate : 092 BPM Atrial Rate : 092 BPM P-R Int : 118 ms QRS Dur : 084 ms QT Int : 364 ms P-R-T Axes : 058 015 040 degrees QTc Int : 450 ms NORMAL SINUS RHYTHM NONSPECIFIC T WAVE ABNORMALITY ABNORMAL ECG WHEN COMPARED WITH ECG OF 17-MAR-2017 04:38, NO SIGNIFICANT CHANGE WAS FOUND Confirmed by KUSHAL DANIEL MD ([id number]) on 03/26/2017 2:35:52 PM Referred By: Confirmed By:KUSHAL DANIEL MD
== END 2017-03-26 00:21 | disposition home or self-care (01) ==
LOC: JER 17:25
DX: S82.202D Unspecified fracture of shaft of left tibia, subsequent encounter for closed fracture with routine healing (principal); I10 Essential (primary) hypertension; E78.5 Hyperlipidemia, unspecified; E11.9 Type 2 diabetes mellitus without complications
CPT/HCPCS: 93005; 93010; 99282-25

== ENCOUNTER 2017-04-03 07:51 | Inpatient (IN) | payer OTHER ==
[2017-04-02 14:42] VITALS: BMI 22.6
[2017-04-03] MEDS ORDERED: ROPIVACAINE HCL 0.5% 30ML VIAL ONE (08:59)
[2017-04-03] MEDS ORDERED: MIDAZOLAM HCL 2 MG/2 ML SINGLE DOSE VIAL ONE ×2 (09:00)
[2017-04-03] MEDS ORDERED: ONDANSETRON 4 MG/2 ML VIAL IVPUSH PRN (09:50)
[2017-04-03] MEDS ORDERED: HYDROmorphone HCL CARPU-JECT 1 MG/1 ML DISP.SYRIN IVPUSH PRN (09:50)
--- NOTE | 2017-04-03 11:14 | HP ---
Satellite H - Chief Complaint Chief Complaint: left tibia fx - Past Medical History Allergies/Adverse Reactions: Allergies Allergy/AdvReac Type Severity Reaction Status Date / Time No Known Allergies Allergy Verified 03/17/17 02:10 - Current Medications Current Medications: Home Medications Medication Instructions Recorded Atorvastatin Ca [Lipitor] 80 mg PO HS #30 tablet 03/22/17 Lisinopril [Prinivil] 10 mg PO DAILY #30 tablet 03/22/17 Acetaminophen [Tylenol -] 1,000 mg PO Q6H 04/02/17 Ferrous Sulfate [Feosol] 325 mg PO DAILY 04/02/17 Metformin HCl [Metformin HCl ER] 1,000 mg PO BID 04/02/17 Cholecalciferol (Vitamin D3) 2,000 unit PO DAILY 04/03/17 [Vitamin D3 -] Docusate Sodium [Colace] 100 mg PO BID 04/03/17 Oxycodone HCl/Acetaminophen 1 each PO Q4H PRN 04/03/17 [Percocet 10-325 mg Tablet] Satellite Physical Exam - Physical Examination Vital Signs: Vital Signs Period Temp Pulse Resp BP Sys/Marquez Pulse Ox Last 24 Hr 98.9 F 87 16 115/48 97 General Appearance: Well Nourished, Well Developed, Alert & Oriented x3 ENT: Clear Lung: Normal air movement Heart: Regular rate & rhythm Extremities: Other (left LE- ex fix in place, + swelling, skin abrasion, nvi) Neurological: Intact, Alert, Oriented Satellite Impression/Plan - Impression/Plan Impression: left tib/fib fx s.p ex fix placement Operative Procedure: left tib ORIF, removal of ex fix Date to be Performed: 04/03/17
[2017-04-03] MEDS ORDERED: HYDROmorphone HCL CARPU-JECT 2 MG/1 ML DISP.SYRIN ONE (12:52)
--- NOTE | 2017-04-03 13:05 | OP ---
Operative Note - Note: Operative Date: 04/03/17 ([facility]) Pre-Operative Diagnosis: left tib/fib fx s/p ex fix Operation: left tibial plateau ORIF, removal of ex fix Post-Operative Diagnosis: Same as Pre-op Surgeon: Everett Lyman Station Repairer: Ankur Piña Anesthesia: General, Local Specimens Removed: ex fix Estimated Blood Loss (mls): 100 Operative Report Dictated: Yes
[2017-04-03] MEDS: LACTATED RINGERS SOLUTION 1,000 ML IV SCH (13:47)
[2017-04-03] MEDS: oxyCODONE HCL 5 MG TABLET PO PRN ×2 (14:13→20:10)
[2017-04-03] MEDS ORDERED: HYDROmorphone HCL CARPU-JECT 2 MG/1 ML DISP.SYRIN IVPB PRN (16:41)
[2017-04-03] MEDS ORDERED: INSULIN (NOVOLOG) ASPART 100 UNITS/ML 10ML VIAL ONE ×2 (16:44→21:18)
[2017-04-03] MEDS: INSULIN SLIDING SCALE (NOVOLOG) 1 VIAL SQ SCH ×2 (16:49→21:19)
[2017-04-03] MEDS: CEFAZOLIN 1 GM PUSH 1 GM/10 ML DISP.SYRIN IVPUSH SCH (19:07)
[2017-04-03] MEDS ORDERED: PT OWN MED DRAWER 7, Y5N ONE (20:53)
[2017-04-03] MEDS: DOCUSATE SODIUM 100 MG CAPSULE (FP) PO SCH (21:17)
[2017-04-03] MEDS: ATORVASTATIN CA 80 MG TABLET (FP) PO SCH (21:17)
[2017-04-04] MEDS: CEFAZOLIN 1 GM PUSH 1 GM/10 ML DISP.SYRIN IVPUSH SCH (02:27)
[2017-04-04] MEDS: oxyCODONE HCL 5 MG TABLET PO PRN ×3 (02:47→21:32)
[2017-04-04] MEDS: LACTATED RINGERS SOLUTION 1,000 ML IV SCH ×2 (06:29→21:30)
[2017-04-04] MEDS: INSULIN SLIDING SCALE (NOVOLOG) 1 VIAL SQ SCH ×4 (06:29→21:32)
[2017-04-04] MEDS ORDERED: INSULIN (NOVOLOG) ASPART 100 UNITS/ML 10ML VIAL ONE ×2 (06:53→11:39)
[2017-04-04] MEDS ORDERED: PT OWN MED DRAWER 7, Y5N ONE ×2 (09:32→21:35)
[2017-04-04] MEDS: DOCUSATE SODIUM 100 MG CAPSULE (FP) PO SCH ×2 (09:35→21:31)
[2017-04-04] MEDS: LISINOPRIL 10 MG TABLET (FP) PO SCH (09:35)
[2017-04-04] MEDS: FERROUS SO4 325 MG TABLET (FP) PO SCH (09:35)
--- NOTE | 2017-04-04 09:46 | PN ---
Progress Note (short form) - Note Progress Note: Pt seen and examined. On POD #1 s/p left tibial plateau ORIF. Pt doing well, comfortable, not a lot of pain. AVSS LLE NVI, no drainage, good ROM at toes and ankle. Knee immobilizer in place. Imp Doing well Rec DC home today She understands to be NWB F/U with Dr Lyman in 10-14 days
--- NOTE | 2017-04-04 11:10 | OP ---
DATE OF OPERATION: 04/03/2017 PREOPERATIVE DIAGNOSIS: Left comminuted tibial plateau fracture status post external fixator. POSTOPERATIVE DIAGNOSIS: Left comminuted tibial plateau fracture status post external fixator. PROCEDURE: Open reduction internal fixation left tibial plateau fracture and removal external fixator. SURGICAL ATTENDING: Sami Lyman MD MACHINIST HELPER: ANAI Garcia ANESTHESIA: Regional and spinal. CLOSURE: A Judy lateral periarticular plate with appropriate screws, 2-0 for subcutaneous, and sean for skin. ESTIMATED BLOOD LOSS: Less than 100 mL. COMPLICATIONS: None. CONDITION: To recovery room in stable condition. DESCRIPTION OF PROCEDURE: The patient was taken to the operating room on April 03, 2017. Spinal and regional anesthesia was administered by the anesthesiologist. IV Kefzol was administered prophylactically prior to the case. The left lower extremity was prepped and draped in the usual sterile fashion. The external fixator was also scrubbed and Betadined as well. The lateral limb was, however, removed before we did the ORIF to gain access but leaving the superior limb for stability during the case, which was holding the reduction. A 4- to 5-cm curvilinear longitudinal incision over the proximal lateral aspect of the tibia in a curved fashion was incised. Hemostasis was achieved with Bovie cautery. A periosteal elevator was placed on the lateral aspect of the tibia. An 8-hole plate was chosen. We used that by using fluoroscopy to ascertain appropriate length. It was then pinned both proximally and distally. The targeting device was then used to place multiple screws both proximally and distally initially. Nonlocking screws to cinch the plate to the bone then locking screws for further fixation. Excellent rigidity of the fracture was obtained with excellent position of the hardware and excellent reduction of the intra-articular component. X-rays in [facility] revealed this to be the case. At that time, the external fixator was removed, and the knee was taken through a range of motion and found to go from 0-95 already with good stability. I elected not to put a medial plate as well as the skin on the medial side of the tibia was not completely granulated in from its blisters. The lateral side had completely healed. The leg was then scrubbed and placed with Xeroform over those blisters that were still granulating. The incisions were closed using 2-0 Vicryl and sean. All the distal screws were placed percutaneously using the targeting device. Only small stab incisions were made. A sterile pressure dressing was placed over the leg, and the patient was awakened from anesthesia and transferred to recovery in stable condition. SAMI LYMAN M.D. [id number]
--- NOTE | 2017-04-04 13:03 | PN ---
Progress Note (short form) - Note Progress Note: POD #1 -s/p ORIF of left tibial plateau fracture under spinal anesthesia and femoral nerve block. VSS. Pt. doing well, sitting up comfortably in chair with operative leg up. No complaints. Good pain control. No apparent anesthetic complications noted. Pt. to be discharged later today.
[2017-04-04] MEDS: ATORVASTATIN CA 80 MG TABLET (FP) PO SCH (21:31)
[2017-04-05] MEDS: INSULIN SLIDING SCALE (NOVOLOG) 1 VIAL SQ SCH ×2 (06:24→11:27)
[2017-04-05 06:28] VITALS: PULSE 100
[2017-04-05] MEDS ORDERED: PT OWN MED DRAWER 7, Y5N ONE (09:08)
[2017-04-05] MEDS: DOCUSATE SODIUM 100 MG CAPSULE (FP) PO SCH (09:09)
[2017-04-05] MEDS: LISINOPRIL 10 MG TABLET (FP) PO SCH (09:09)
[2017-04-05] MEDS: FERROUS SO4 325 MG TABLET (FP) PO SCH (09:09)
[2017-04-05 11:12] VITALS: BP 108/60; TEMP 98.5
--- NOTE | 2017-04-05 11:27 | PN ---
Progress Note (short form) - Note Progress Note: PATIENT NEEDED TO STAY OVER NIGHT DUE TO SIGNIFICANT NAUSEA. IV FLUIDS WERE GIVEN AND THE PAIN MEDICINE WAS HELD. TODAY SHE IS MUCH BETTER. MINIMAL PAIN. CALF SOFT AND NT. GOOD ACTIVE MOTION OF THE ANKLE AND TOES. NVI PLAN: DC TO HOME, NWB, F/U X 1 WEEK
--- NOTE | 2017-04-05 17:25 | PATH ---
Surgical Pathology Report Patient Name: DEWAYNE MIKE [facility]. Rec. #: [id number] /Age/Gender: 1955 (Age: 61) / F Account: <[id number]> Location: AMBULATORY SURG Taken: 04/03/2017 Received: 04/03/2017 Reported: 04/05/2017 Physicians: Everett Lyman M.D. Specimen(s) Received HARDWARE Clinical History Left tibial plateau fracture Final Diagnosis TIBIAL PLATEAU, LEFT, EXTERNAL FIXATOR, REMOVAL: SURGICAL HARDWARE. MACROSCOPIC DIAGNOSIS. Electronically Signed Aura Lopez M.D. Gross Description Received fresh labeled "removed external fixator," are 3 metallic portions of hardware ranging from 15.5-40 cm in length, consistent with an external fixator. Also received within the same container are 4 shah metallic screws ranging from 15.0-18.0 cm in length. No soft tissue is present. No sections are submitted, gross only. 04/04/2017 [facility]04/04/2017
== END 2017-04-05 12:30 | disposition home or self-care (01) | DRG 313 ==
LOC: UNDOADMIN 07:51 → JSAMEDAYSX 07:51 → JASUSAT 07:52 → EDSTATUS 11:00 → J6S 13:50 → JASUSAT 13:50 → J6S 13:50
PROVIDERS: ADMIT Orthopaedic Surgery; ATTEND Orthopaedic Surgery
PROC: 0QSH04Z Reposition Left Tibia with Internal Fixation Device, Open Approach (ICD-10-PCS; principal; 2017-04-03 09:30)
PROC: 0QPHX5Z Removal of External Fixation Device from Left Tibia, External Approach (ICD-10-PCS; 2017-04-03 09:30)
DX: S82.142A Displaced bicondylar fracture of left tibia, initial encounter for closed fracture (principal); S82.452A Displaced comminuted fracture of shaft of left fibula, initial encounter for closed fracture; E11.65 Type 2 diabetes mellitus with hyperglycemia; I10 Essential (primary) hypertension; E78.5 Hyperlipidemia, unspecified; R01.1 Cardiac murmur, unspecified; W10.8XXA Fall (on) (from) other stairs and steps, initial encounter; Y93.89 Activity, other specified; Y92.038 Other place in apartment as the place of occurrence of the external cause; R11.0 Nausea
CPT/HCPCS: 76000-TC; 86850; 86900; 86901; 88300-TC; 94760; 97116-GP; 97161-GP